=== PATIENT | male | born 1940 | race Caucasian/White ===

== ENCOUNTER → 2024-06-26 | Outpatient (CLI) | payer MEDICARE, MEDICAID, SELFPAY ==
[2024-06-26 11:09] LABS: Collection Type, Urine Clean Catch; Squamous Epithelial Cell,Urine 0 /hpf (0-5)
[2024-06-26 11:32] LABS: Basophils % (Auto) 1 % (0-2.5); Eosinophils # (Auto) 0.1 Thou/mm3 (0.0-0.5); Eosinophils % (Auto) 3 % (0-10); Hematocrit 47.5 % (41.0-53.0); Hemoglobin 14.8 g/dL (13.5-16.0); Immature Granulocytes % (Auto) 0 % (0-0); Immature Granulocytes Auto 0.02 Thou/mm3 (0.00-0.00); Lymphocytes % (Auto) 36 % (10-50); Mean Corpuscular HGB Conc 31.2 g/dl (31.0-37.0); Mean Corpuscular Hemoglobin 27.3 pg (25.0-35.0); Mean Corpuscular Volume 88 fL (80-100); Monocytes # (Auto) 0.5 Thou/mm3 (0.0-0.8); Monocytes % (Auto) 9 % (0-12); Neutrophils # (Auto) 2.8 Thou/mm3 (1.8-7.7); Neutrophils % (Auto) 51 % (37-80); Nucleated Red Blood Cell % 0 /100 WBC (0); Platelet Count 255 Thou/mm3 (140-440); Red Blood Count 5.43 Miln/mm3 (4.50-5.90); White Blood Count 5.4 Thou/mm3 (3.8-10.6)
[2024-06-26 11:52] LABS: Bilirubin,Urine Negative (Negative); Blood,Urine Negative (Negative); Clarity,Urine Clear (Clear/Hazy); Color,Urine Yellow (Lt Yel-Yel); Glucose, Urine 4+ (Negative); Ketones,Urine Negative (Negative); Leukocyte Esterase,Urine Negative (Negative); Nitrite,Urine Negative (Negative); PH,Urine 5.5 (5.0-7.0); Protein,Urine Trace (Neg - Trace); RBC,Urine 4 /hpf (0-3); Specific Gravity,Urine 1.034 (1.001-1.035); Urobilinogen,Urine Negative mg/dL (0.0-1.0); WBC,Urine 2 /hpf (0-5)
[2024-06-26 12:00] LABS: Alanine Aminotransferase 22 U/L (10-49); Albumin, Serum 4.1 gm/dL (3.4-4.8); Albumin/Globulin Ratio 1.4 (1.2-2.2); Alkaline Phosphatase 87 U/L (46-116); Anion Gap 7 (7-16); Aspartate Amino Transferase 18 U/L (0-34); BUN/Creatinine Ratio 13 Ratio (12-20); Bilirubin,Total 0.7 mg/dL (0.3-1.2); Blood Urea Nitrogen 13 mg/dL (9-23); Calcium 9.9 mg/dL (8.3-10.6); Calcium (Corrected) 9.9 mg/dL (8.5-10.1); Carbon Dioxide 27.9 mMol/L (20.0-31.0); Cardiac Risk Estimate 2.5 RATIO (4.0-6.7); Chloride 106 mMol/L (98-107); Cholesterol 119 mg/dL (132-200); Globulin 2.9 gm/dL (2.3-3.5); Glucose 103 mg/dL (74-106); HDL Cholesterol 47 mg/dL (40-60); LDL Cholesterol,Calculated 54 mg/dL (0-130); Osmolality,Calculated 281 (275-295); Potassium 4.6 mMol/L (3.4-5.1); Sodium 141 mMol/L (136-145); Triglycerides 89 mg/dL (30-150); eGFR > 60 See Note
== END | disposition home or self-care (01) ==
LOC: COPL 10:04
PROVIDERS: PCP Family Medicine; Referring Provider Family Medicine; Visit Provider Family Medicine
DX: Z00.00 Encounter for general adult medical examination without abnormal findings (principal); E78.2 Mixed hyperlipidemia; I10 Essential (primary) hypertension; I25.10 Atherosclerotic heart disease of native coronary artery without angina pectoris
CPT/HCPCS: 36415; 80053; 80061; 81001; 85025

== ENCOUNTER → 2024-10-18 | Outpatient (CLI) | payer MEDICARE, MEDICAID, SELFPAY ==
[2024-10-18 10:39] LABS: Alanine Aminotransferase 16 U/L (10-49); Albumin, Serum 3.7 gm/dL (3.4-4.8); Albumin/Globulin Ratio 1.2 (1.2-2.2); Alkaline Phosphatase 66 U/L (46-116); Anion Gap 11 (7-16); Aspartate Amino Transferase 23 U/L (0-34); BUN/Creatinine Ratio 15 Ratio (12-20); Bilirubin,Total 0.9 mg/dL (0.3-1.2); Blood Urea Nitrogen 15 mg/dL (9-23); Calcium 9.3 mg/dL (8.3-10.6); Calcium (Corrected) 9.5 mg/dL (8.5-10.1); Carbon Dioxide 29.2 mMol/L (20.0-31.0); Cardiac Risk Estimate 2.6 RATIO (4.0-6.7); Chloride 104 mMol/L (98-107); Cholesterol 111 mg/dL (132-200); Glucose 106 mg/dL (74-106); HDL Cholesterol 43 mg/dL (40-60); LDL Cholesterol,Calculated 41 mg/dL (0-130); Osmolality,Calculated 287 (275-295); Potassium 3.8 mMol/L (3.4-5.1); Sodium 144 mMol/L (136-145); Total Protein 6.7 gm/dL (5.7-8.2); Triglycerides 135 mg/dL (30-150); eGFR > 60 See Note
== END | disposition home or self-care (01) ==
LOC: COPL 09:10
PROVIDERS: PCP Family Medicine; Referring Provider Family Medicine; Visit Provider Family Medicine
DX: E78.2 Mixed hyperlipidemia (principal); I25.10 Atherosclerotic heart disease of native coronary artery without angina pectoris; I11.0 Hypertensive heart disease with heart failure; I50.22 Chronic systolic (congestive) heart failure
CPT/HCPCS: 36415; 80053; 80061

== ENCOUNTER 2025-01-20 16:37 | Emergency (ER) | payer MEDICARE, MEDICAID, SELFPAY ==
--- NOTE | 2025-01-20 16:41 | EKG_ITS ---
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1940 Requested By: ED Temporary Provider Order Number: [id number] Reading MD: ED Temporary Provider Measurements Intervals [place] Rate: 78 P: 33 OR: 275 QRS: 261 QRSD: 138 T: 46 QT: 399 QTc: 456 Interpretive Statements SINUS RHYTHM WITH FIRST DEGREE AV BLOCK WITH OCCASIONAL SUPRAVENTRICULAR PREMATURE COMPLEXES INTRAVENTRICULAR CONDUCTION DELAY [130+ ms QRS DURATION] RIGHT VENTRICULAR HYPERTROPHY [SOME/ALL OF: PROMINENT R IN V1, LATE TRANSITION, RAD, PHILIPP, SSS] INFERIOR MYOCARDIAL INFARCTION , PROBABLY OLD [40+ ms Q WAVE AND/OR ST/T ABNORMALITY IN II/aVF] ANTEROLATERAL MYOCARDIAL INFARCTION , OF INDETERMINATE AGE [40+ ms Q WAVE IN I/aVL/V3-V6] Compared to ECG 01/20/2025 17:00:13 Right ventricular hypertrophy now present Myocardial infarct finding now present Ectopic atrial rhythm no longer present Right-axis deviation no longer present /store/S0/[id number].pdf
--- NOTE | 2025-01-20 16:41 | EKG_ITS ---
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1940 Requested By: ED Temporary Provider Order Number: [id number] Reading MD: ED Temporary Provider Measurements Intervals [place] Rate: 80 P: -81 FL: 225 QRS: 253 QRSD: 158 T: 47 QT: 385 QTc: 446 Interpretive Statements ECTOPIC ATRIAL RHYTHM WITH FIRST DEGREE AV BLOCK POSSIBLE LEFT ATRIAL ENLARGEMENT [-0.1mV P-WAVE IN V1/V2] RIGHT AXIS DEVIATION [QRS AXIS > 100] INTRAVENTRICULAR CONDUCTION DELAY [130+ ms QRS DURATION] Compared to ECG 12/07/2023 13:15:49 Ectopic atrial rhythm now present Right-axis deviation now present Sinus rhythm no longer present Sinus arrhythmia no longer present Myocardial infarct finding no longer present /store/S0/[id number].pdf
[2025-01-20 16:56] VITALS: BP 125/82; PULSE 81; RESP 19; TEMP 36.7; O2SAT 95
--- NOTE | 2025-01-20 17:03 | XR_ITS ---
Examination: PA lateral chest 2 views FINDINGS: Upright PA and lateral chest 2 views Date and time: January 20, 2025, 1729 hours Comparison January 20, 2025 1314 hours INDICATIONS: Chest pain and weakness today. FINDINGS: Scarring versus subsegmental atelectasis at the lung bases Minor prominence left ventricle Ectatic thoracic aorta. No interval pneumonia or pulmonary edema Prominent osteopenia IMPRESSION: No interval pneumonia or pulmonary edema
--- NOTE | 2025-01-20 17:03 | PD.EDRME ---
Rapid Medical Screening Exam RME Arrival date/time: 01/20/25 16:37 84-year-old male with a history of hyperlipidemia, hypertension, coronary artery disease, presents to the emergency room with a chief complaint of 7 out of 10 sternal chest pain that radiates to his left arm x 3 days I have greeted and performed a focused initial assessment of this patient. A comprehensive ED assessment and evaluation of the patient, analysis of all test results, and completion of the medical decision making process will be conducted by additional ED providers. Chief Complaint: Chest Pain Vital signs: Vital Signs Temperature 98.0 F 01/20/25 16:56 Pulse Rate 81 01/20/25 16:56 Respiratory Rate 19 01/20/25 16:56 Blood Pressure 125/82 01/20/25 16:56 Pulse Oximetry (%) 95 01/20/25 16:56 Oxygen Delivery Method Room Air 01/20/25 16:56 Vital signs reviewed by provider: Yes
[2025-01-20 17:20] LABS: Basophils # (Auto) 0.0 Thou/mm3 (0.0-0.2); Basophils % (Auto) 0 % (0-2.5); Eosinophils # (Auto) 0.3 Thou/mm3 (0.0-0.5); Eosinophils % (Auto) 4 % (0-10); Hematocrit 48.6 % (41.0-53.0); Hemoglobin 15.5 g/dL (13.5-16.0); Immature Granulocytes Auto 0.01 Thou/mm3 (0.00-0.00); Lymphocytes # (Auto) 2.7 Thou/mm3 (1.0-4.8); Lymphocytes % (Auto) 38 % (10-50); Mean Corpuscular HGB Conc 31.9 g/dl (31.0-37.0); Mean Corpuscular Hemoglobin 29.3 pg (25.0-35.0); Mean Corpuscular Volume 92 fL (80-100); Monocytes # (Auto) 0.9 Thou/mm3 (0.0-0.8); Monocytes % (Auto) 12 % (0-12); Neutrophils # (Auto) 3.3 Thou/mm3 (1.8-7.7); Neutrophils % (Auto) 46 % (37-80); Nucleated Red Blood Cell # 0.00 Thou/mm3 (0.00-0.00); Nucleated Red Blood Cell % 0 /100 WBC (0); Platelet Count 222 Thou/mm3 (140-440); RDW Standard Deviation 56.3 fL (35.1-43.9); Red Blood Count 5.29 Miln/mm3 (4.50-5.90); White Blood Count 7.2 Thou/mm3 (3.8-10.6)
[2025-01-20 17:38] LABS: B-Type Natriuretic Peptide 34 pg/mL (0-100); INR 1.1 (0.9-1.3); Partial Thromboplastin Time 26.0 Seconds (22.0-36.0); Prothrombin Time 11.8 Seconds (9.0-12.2)
[2025-01-20 17:43] LABS: Alanine Aminotransferase 24 U/L (10-49); Albumin, Serum 4.2 gm/dL (3.4-4.8); Albumin/Globulin Ratio 1.4 (1.2-2.2); Alkaline Phosphatase 61 U/L (46-116); Anion Gap 9 (7-16); Aspartate Amino Transferase 28 U/L (0-34); BUN/Creatinine Ratio 11 Ratio (12-20); Bilirubin,Total 0.5 mg/dL (0.3-1.2); Blood Urea Nitrogen 11 mg/dL (9-23); Calcium 9.9 mg/dL (8.3-10.6); Calcium (Corrected) 9.9 mg/dL (8.5-10.1); Carbon Dioxide 27.6 mMol/L (20.0-31.0); Chloride 103 mMol/L (98-107); Creatinine (Component) 1.0 mg/dL (0.6-1.3); Globulin 2.9 gm/dL (2.3-3.5); Glucose 133 mg/dL (74-106); Magnesium 1.7 mg/dL (1.6-2.6); Osmolality,Calculated 280 (275-295); Potassium 4.2 mMol/L (3.4-5.1); Sodium 140 mMol/L (136-145); Total Protein 7.1 gm/dL (5.7-8.2); eGFR > 60 See Note
[2025-01-20 18:10] LABS: Troponin I 0.160 ng/mL (0.0-0.045)
--- NOTE | 2025-01-20 18:15 | PC.NURSE ---
CALL FROM ANDREW IN LAB W/ PT'S TROP. 0.160. DR. ALVAREZ INFORMED, REQUESTED A ROOM FOR PT. CHARGE NURSE RAKESH INFORMED.
[2025-01-20 18:16] LABS: Collection Type, Urine Clean Catch; Squamous Epithelial Cell,Urine 0 /hpf (0-5)
[2025-01-20 18:22] VITALS: BP 132/86; PULSE 85; RESP 19; TEMP 36.6; O2SAT 97; BMI 30.1
[2025-01-20 18:25] LABS: Bilirubin,Urine Negative (Negative); Blood,Urine Negative (Negative); Clarity,Urine Clear (Clear/Hazy); Color,Urine Lt-Yellow (Lt Yel-Yel); Glucose, Urine 4+ (Negative); Ketones,Urine Negative (Negative); Leukocyte Esterase,Urine Negative (Negative); Nitrite,Urine Negative (Negative); PH,Urine 5.5 (5.0-7.0); Protein,Urine Negative (Neg - Trace); RBC,Urine 1 /hpf (0-3); Specific Gravity,Urine 1.032 (1.001-1.035); Urobilinogen,Urine Negative mg/dL (0.0-1.0); WBC,Urine 2 /hpf (0-5)
--- NOTE | 2025-01-20 19:04 | PD.EDADULT ---
ED General RME/HPI General Chief complaint: Chest Pain Stated complaint: CHEST PAIN SINCE THIS MORNING , SENT BY PCP Time Seen by Provider: 01/20/25 18:12 Arrival date/time: 01/20/25 16:37 CC: Chest pain with shortness of breath HPI onset approximately 48 hours ago. Patient states pain is somewhat dissipated also patient stating that he has increased shortness of breath which she has not experienced in the past. Patient is awake alert oriented he is slow to respond to questions secondary to an old CVA at bedside Review of the medical record shows significant history for multiple stents aortic aneurysm repair and stroke. RME / HPI RME / HPI narrative: 01/20/25 16:37 84-year-old male with a history of hyperlipidemia, hypertension, coronary artery disease, presents to the emergency room with a chief complaint of 7 out of 10 sternal chest pain that radiates to his left arm x 3 days I have greeted and performed a focused initial assessment of this patient. A comprehensive ED assessment and evaluation of the patient, analysis of all test results, and completion of the medical decision making process will be conducted by additional ED providers. Related Data Home Medications ?Medication ?Instructions ?Recorded ?Confirmed aspirin 81 mg tablet,delayed 81 mg PO DAILY 09/17/21 12/08/23 release duloxetine 30 mg capsule,delayed 30 mg PO BID 12/02/23 12/08/23 release (Cymbalta) gabapentin 300 mg capsule 300 mg PO QID 12/02/23 12/08/23 galcanezumab-gnlm 120 mg/mL 120 mg subcut QMONTH 12/02/23 12/08/23 subcutaneous pen injector (Emgality Pen) losartan 100 mg tablet 100 mg PO QDAY 12/02/23 12/08/23 Held on 12/09/23. Instructions: Resume on 12/23/23. Has been held and placed on 50mg daily dose, will follow up with PCP and digital marketing specialist to make any dose adjustment within 2 weeks. Previous Rx's ?Medication ?Instructions ?Recorded tramadol 50 mg tablet 50 mg PO TID PRN pain #21 tabs 12/05/20 atorvastatin 80 mg tablet 80 mg PO HS 30 days #30 tabs 12/09/23 empagliflozin 10 mg tablet 10 mg PO QAM 30 days #30 tabs 12/09/23 (Jardiance) Allergies Allergy/AdvReac Type Severity Reaction Status Date / Time No Known Allergies Allergy Verified 01/20/25 16:40 Review of Systems Review of Systems Narrative Review of Systems: GEN: No fever, no chills, no weight loss EYES: No discharge, no visual changes, no pain HEENT: No ear pain, no congestion, no sore throat PULM: + shortness of breath, no cough, no congestion CV: + chest pain, no dyspnea on exertion, no palpitations GI: No nausea, no vomiting, no diarrhea, no pain, no constipation : No frequency, no urgency, no dysuria MUSC/SKEL: No joint pain, no back pain SKIN: No rash PSYCH: No hallucinations, no depression HEME/LYMPH: No easy bleeding or bruising tendencies NEURO: No weakness, no headache Past Medical History Past Medical History NEUROLOGIC: Positive Neurological Disorders and Migraine; Negative Seizures CARDIAC: Positive Cardiac Disorders, Atrial Fibrillation, Angina, Atherosclerotic Heart Disease, Peripheral Vascular Disease and Hypertension; Negative Congestive Heart Failure RESPIRATORY: Positive Bronchitis; Negative Chronic Obstructive Pulmonary Disease (COPD) or Asthma GASTROINTESTINAL: Negative Gastrointestinal Disorders GENITOURINARY: Positive Genitourinary Disorders, Kidney Stones and Benign Prostatic Hyperplasia; Negative Renal Disease MUSCULOSKELETAL: Positive Musculoskeletal Disorders and Osteoporosis ENT: Positive Cataracts ENDOCRINE: Negative Endocrine Disorders, Diabetes Mellitus Type 1 or Diabetes Mellitus Type 2 HEMATOLOGIC: Negative Blood Disorders or Sickle Cell Disease PSYCHO/SOCIAL: Positive Depression and Anxiety OTHER HISTORY: Positive Hospitalization; Negative Autoimmune Disease, Falls, Blood Transfusions, Blood Transfusion Reaction or Anesthesia Reactions Family History FAMILY HISTORY: Positive Family Psychiatric Problems and Family Cardiac Disorders; Negative Family Respiratory Disorders Surgical History SURGICAL: Positive Cardiac Surgery, Coronary Stent, Angiogram, Ear Surgery, Tympanostomy Tube, Eye Surgery, Throat Surgery and Vasectomy Social History SMOKING STATUS: Former smoker SECOND HAND EXPOSURE: No SUBSTANCE USE: does not use ED Exam Narrative Physical exam: [General: Appears not in any acute distress Head normocephalic HEENT: Eyes pupils are PERRLA EOMs are intact mouth pink dry membranes uvula is midline swallow symmetrical phonation is normal nose no rhinorrhea although the subsystems HEENT are within acceptable limits Neck is supple nontender, no JVD no edema Chest equal chest rise nontender to palpation Respiratory: Clear to auscultation no wheezes crackles or rubs CV: Rate rhythm is regular no murmurs rubs or clicks Abdomen is soft nontender no masses positive bowel sounds all 4 quadrants Back: No CVA tenderness no spinous process tenderness from cervical spine thoracic and lumbar spine Skin: Intact no petechiae rash induration ulceration or crepitus Extremities: Moving all extremity against resistance cap refill less than 2 seconds neurosensory intact Neuro: Awake alert oriented x2, person and place, Glascow coma 15 no focal deficits] Course Course Course Narrative: At 2140 2 repeat troponin is unchanged as there has not been a huge increase in the troponin of the low index of suspicion that there is new cardiac ischemia going on as this is less than the prior lab draws. Patient tolerated ambulating without hypotension, hypoxia, or shortness of breath. Patient will be given small amount of medication for the hypertension and discharged home. Quality Measures none Orders Category Date Time Status EKG (ED ONLY) *Do not use* NOW Care 01/20/25 16:41 Completed Insert IV NOW Care 01/20/25 20:15 Completed EKG (ED Only) Stat Exams 01/20/25 16:41 Draft EKG (ED Only) Urgent Exams 01/20/25 16:41 Draft XR chest 2V Stat Exams 01/20/25 17:03 Completed B-Type Natriuretic Peptide Stat Lab 01/20/25 17:15 Completed CBC Stat Lab 01/20/25 17:15 Completed Comprehensive Metabolic Panel Stat Lab 01/20/25 17:15 Completed Magnesium Stat Lab 01/20/25 17:15 Completed Partial Thromboplastin Time Stat Lab 01/20/25 17:15 Completed Prothrombin Time with INR Stat Lab 01/20/25 17:15 Completed Troponin I Stat Lab 01/20/25 17:15 Completed Troponin I Stat Lab 01/20/25 20:08 Completed Urinalysis Stat Lab 01/20/25 17:30 Completed hydrALAZINE INJ [Apresoline Inj] Med 01/20/25 21:41 Discontinued 10 mg IVP X1 ONE Vital Signs Vital signs: Vital Signs Temperature 98.0 F 01/20/25 16:56 Pulse Rate 81 01/20/25 16:56 Respiratory Rate 19 01/20/25 16:56 Blood Pressure 125/82 01/20/25 16:56 Pulse Oximetry (%) 95 01/20/25 16:56 Oxygen Delivery Method Room Air 01/20/25 16:56 Discharge Plan Plan Patient Disposition: HOME (Self Care) Patient condition on transfer: Stable Prescriptions/Referrals Prescriptions/Med Rec: No Action tramadol 50 mg tablet 50 mg PO TID PRN (Reason: pain) Qty: 21 0RF aspirin 81 mg tablet,delayed release (DR/EC) 81 mg PO DAILY Patient Comments: TAKE ONE TABLET BY MOUTH EVERY DAY FOR THE HEART atorvastatin 80 mg tablet 80 mg PO HS 30 Days Qty: 30 2RF Jardiance 10 mg Tablet 10 mg PO QAM 30 Days Qty: 30 0RF gabapentin 300 mg capsule 300 mg PO QID losartan 100 mg tablet 100 mg PO QDAY duloxetine [Cymbalta] 30 mg capsule,delayed release(DR/EC) 30 mg PO BID Patient Comments: TAKE 1 CAPSULE BY MOUTH ONCE A DAY FOR 1 WEEK THEN 2 TIMES A DAY WITH FOOD Emgality Pen 120 mg/mL pen injector 120 mg SUBCUT QMONTH Referrals: Faina Cardenas MD [Primary Care Provider] - In 1 week Problem List Clinical Impression: Chest pain Patient/Caregiver Discharge Instructions Other Activity Instructions:: Follow-up with your primary care provider Education Materials: ED Chest Pain, Uncertain Cause Print Language: Upper Sorbian Stand Alone Forms: [employer] Award Info., Work/School Release, Patient Portal Info Letter PA/GENERAL UTILITY WORKER Supervising Physician PA/GENERAL UTILITY WORKER Supervising Physician: Molina Guerra ENP MDM Clinical Information Provided by patient Medical Records Reviewed [facility] Meds/Rx Considered, not Ordered None Labs/Rad/Tests considered, not Ordered None Chronic Illness/Social Conditions which may negatively complicate care or outcome(s)-explain: CHF/CAD/Cardiac illness EKG EKG Interpretation narrative: EKG performed at 1700 shows a ventricular rate of 9080 MI interval 225 QRS of 158 QTc of 421 this is ectopic atrial rhythm with first-degree block. When compared to an EKG of November 2023 there are no significant changes. Lab Interpretation Lab(s) interpretation(s): CBC shows no acute leukocytosis anemia thrombocytopenia Coags within acceptable limits CMP shows no significant electrolyte imbalance renal impairment transaminitis or T. bili elevation Troponin at 0.160 note: The patient has had all elevated troponins with visits in the past secondary to a significant cardiac history. BNP is within acceptable limits Urine shows 4+ glucose no other acute finding suggestive of UTI. Imaging Provider imaging interpretation(s): Chest x-ray as interpreted by me read by radiology is negative for any acute finding. Medication Administration(s) Medication Administration History Discontinued Medications Hydralazine HCl (Hydralazine Inj 20 Mg/Ml Vial) 10 mg IVP X1 ONE Stop: 01/20/25 21:42 Last Admin: 01/20/25 21:45 Dose: 10 mg Documented By: MATILDA
[2025-01-20 19:59] VITALS: BP 179/109; PULSE 71; RESP 18; TEMP 36.5; O2SAT 95
--- NOTE | 2025-01-20 20:31 | PC.NURSE ---
PT IS TAKING MONEY HOME
[2025-01-20 21:16] LABS: Troponin I 0.162 ng/mL (0.0-0.045)
--- NOTE | 2025-01-20 21:37 | PC.NURSE ---
PT AMBULATED TO NURSING STATION AND BACK WITHOUT REPORTING ANY ISSUES. PT DENIES SOB AND DIZZINESS. PTS GAIT IS STEADY.
[2025-01-20 21:40] VITALS: BP 202/103; PULSE 65; RESP 18; TEMP 37.1; O2SAT 97
[2025-01-20 21:45] VITALS: BP 202/103; PULSE 67
[2025-01-20] MEDS: hydrALAZINE INJ 20 MG/ML VIAL 10 MG IVP (21:45)
[2025-01-20 22:16] VITALS: BP 175/90; PULSE 69; RESP 13; O2SAT 95
== END 2025-01-20 22:17 | disposition home or self-care (01) ==
PROVIDERS: Nurse Practitioner Family; Registered Nurse General Practice; Emergency Provider Emergency Medicine; PCP Family Medicine
DX: R07.9 Chest pain, unspecified (principal); R53.1 Weakness; I44.0 Atrioventricular block, first degree; I10 Essential (primary) hypertension; R06.02 Shortness of breath; Z87.891 Personal history of nicotine dependence
CPT/HCPCS: 36415; 71046; 80053; 81001; 83735; 83880; 84484; 85025; 85610; 85730; 93005; 96374; 99283; J0360

== ENCOUNTER → 2025-01-20 | Outpatient (CLI) | payer MEDICARE, MEDICAID, SELFPAY ==
--- NOTE | 2025-01-20 12:39 | XR_ITS ---
Examination: AP chest single view Technique one AP upright portable chest single view Date and time: January 20, 2025, 1314 hours INDICATIONS: Chest pain coughing beginning one week ago FINDINGS: Subsegmental atelectasis in the lower lung zones. Normal heart size. No pneumonia or pulmonary edema. Mild to moderate elevation right hemidiaphragm IMPRESSION: No pneumonia or pulmonary edema.
[2025-01-20 14:41] LABS: Basophils # (Auto) 0.0 Thou/mm3 (0.0-0.2); Basophils % (Auto) 1 % (0-2.5); Eosinophils # (Auto) 0.2 Thou/mm3 (0.0-0.5); Eosinophils % (Auto) 3 % (0-10); Hematocrit 47.9 % (41.0-53.0); Hemoglobin 15.4 g/dL (13.5-16.0); Immature Granulocytes Auto 0.01 Thou/mm3 (0.00-0.00); Lymphocytes # (Auto) 2.5 Thou/mm3 (1.0-4.8); Lymphocytes % (Auto) 38 % (10-50); Mean Corpuscular HGB Conc 32.2 g/dl (31.0-37.0); Mean Corpuscular Hemoglobin 29.6 pg (25.0-35.0); Mean Corpuscular Volume 92 fL (80-100); Monocytes # (Auto) 0.7 Thou/mm3 (0.0-0.8); Monocytes % (Auto) 11 % (0-12); Neutrophils # (Auto) 3.2 Thou/mm3 (1.8-7.7); Neutrophils % (Auto) 48 % (37-80); Nucleated Red Blood Cell # 0.00 Thou/mm3 (0.00-0.00); Nucleated Red Blood Cell % 0 /100 WBC (0); Platelet Count 219 Thou/mm3 (140-440); RDW Standard Deviation 56.5 fL (35.1-43.9); Red Blood Count 5.20 Miln/mm3 (4.50-5.90); White Blood Count 6.6 Thou/mm3 (3.8-10.6)
[2025-01-20 15:00] LABS: Alanine Aminotransferase 25 U/L (10-49); Albumin, Serum 4.1 gm/dL (3.4-4.8); Albumin/Globulin Ratio 1.4 (1.2-2.2); Alkaline Phosphatase 60 U/L (46-116); Anion Gap 11 (7-16); Aspartate Amino Transferase 29 U/L (0-34); BUN/Creatinine Ratio 12 Ratio (12-20); Bilirubin,Total 0.6 mg/dL (0.3-1.2); Blood Urea Nitrogen 12 mg/dL (9-23); Calcium 9.7 mg/dL (8.3-10.6); Calcium (Corrected) 9.7 mg/dL (8.5-10.1); Carbon Dioxide 26.3 mMol/L (20.0-31.0); Chloride 102 mMol/L (98-107); Creatinine (Component) 1.0 mg/dL (0.6-1.3); Globulin 2.9 gm/dL (2.3-3.5); Glucose 94 mg/dL (74-106); Osmolality,Calculated 277 (275-295); Potassium 3.9 mMol/L (3.4-5.1); Sodium 139 mMol/L (136-145); Total Protein 7.0 gm/dL (5.7-8.2); eGFR > 60 See Note
[2025-01-20 15:02] LABS: Troponin I 0.147 ng/mL (0.0-0.045)
== END | disposition home or self-care (01) ==
LOC: CDIM 12:19 → COPL 13:21
PROVIDERS: PCP Family Medicine; Referring Provider Family Medicine; Visit Provider Radiology Diagnostic Radiology
DX: R06.02 Shortness of breath (principal); R07.9 Chest pain, unspecified; I25.10 Atherosclerotic heart disease of native coronary artery without angina pectoris
CPT/HCPCS: 36415; 71045; 80053; 84484; 85025

== ENCOUNTER 2025-05-30 06:21 | Inpatient (IN) | payer MEDICARE, MEDICAID, SELFPAY ==
[2025-05-30] VITALS (10 sets, daily range): BP systolic 126–198; BP diastolic 90–116; PULSE 60–79; RESP 16–99; TEMP 36.2–36.7; O2SAT 92–98; BMI 26.4
--- NOTE | 2025-05-30 06:25 | XR_ITS ---
Examination: CT brain head without contrast. 2-D sagittal coronal reconstructions Date and time of exam: May 30, 2025, 0631 hours INDICATIONS: Stroke alert CTDI: vol (mGy): 56.0 DLP: (mGycm): 1274 Technique: Multiple CT axial sections of the brain have been obtained, 5 mm slice thickness. Contrast has not been administered. 2-D sagittal, coronal reconstructions have been obtained Low dose protocols were performed. One or more of the following dose reduction techniques were used; automated exposure control, adjustment of the mA and/or KV according to patient size, use of iterative reconstruction technique. Findings: No significant ventricular enlargement. Small old infarct left cerebellar hemisphere left basal ganglia left caudate nucleus Intra-axial or extra-axial hemorrhage density is not seen. No mass effect or midline shift Basal cisterns are not remarkable. Fourth ventricle is midline. Cranial vault intact. Impression: Negative for acute hemorrhage, mass effect or midline shift
--- NOTE | 2025-05-30 06:25 | XR_ITS ---
Examination: CTA carotids with intravenous contrast CTA brain, head with intravenous contrast. 2-D sagittal, coronal reconstructions. 3-D reconstructions. Exam date and time: May 30, 2025, 0630 hours INDICATIONS: Stroke alert, generalized weakness unable to talk or walk beginning 1 hour ago CTDI: vol (mGy) 27.51 DLP: (mGycm) 589 Technique: Multiple CTA axial brain, head carotid images post intravenous contrast injection 75 cc, [id number]. 2-D sagittal, coronal reconstructions. 3-D reconstructions, 3-D post processing including vascular maximum intensity projection images. Low dose protocols were performed. One or more of the following dose reduction techniques were used; automated exposure control, adjustment of the mA and/or KV according to patient size, use of iterative reconstruction technique. Findings: No significant common carotid carotid bifurcation or internal carotid artery stenoses Dominant left vertebral artery, no critical vertebral artery stenoses in the neck Intracranial vertebral arteries basilar artery and posterior cerebral artery branches do fill Significant stenosis in the P3 segment left posterior cerebral artery, 80 to 90% Petrous juxtasellar portions internal carotid arteries intact No large vessel occlusions involving M1 segments middle cerebral arteries middle cerebral artery trifurcation vessels or anterior cerebral arteries IMPRESSION: No significant neck arterial stenoses No cerebral large vessel arterial occlusions or thrombus
--- NOTE | 2025-05-30 06:34 | PD.TNEURO ---
Tele Neuro Consultation Consultation Date 05/30/25 Consultation Narrative Tele Stroke Consult Note [facility] TeleNeurology Consult Services Patient Name:???Christopher Fisher Date of :???1940 Identification Number:??? Date of Service:???05/30/2025 06:24:21 Diagnosis:?I63.89 - Cerebrovascular accident (CVA) due to other mechanism (HCCC) ?G93.41 - Encephalopathy Metabolic ?R47.1 - Dysarthria and anarthria Impression: ?speech apraxia vs anarthria; possible acute ischemic stroke vs acute toxic or metabolic or infectious encephalopathy ? ?load with aspirin 300 mg NJ x1 as patient cannot swallow safely ?will need to clarify home medications (and clarify if there have been any new medications or dosing changes) ?limit sedating medications ?allow permissive hypertension up to 220/110 for first 24 hours then slowly and gradually goal normotension thereafter ?cardiac workup as well as nvflh-rrtiiiubn-pafkysuipq workup (including EKG, troponins, B12 level, TSH with free T4, U/A and UCx) ?admit for further workup and management ?MRI brain when able ?continue to monitor on telemetry ?echocardiogram ?labs for risk factor stratification (lipid panel and HbA1c) ?PT/OT/speech ? ?Plan discussed with patient and ED team, including ED provider, who are all in agreement with plan. All questions were answered to the best of my ability. Sign Out: ? Discussed with Emergency Department Provider Advanced Imaging:CTA Head and Neck Completed. LVO:No Patient is not a candidate for GIOVANNA Metrics: Last Known Well: 05/29/2025 20:00:00 Arrival Time: 05/30/2025 06:21:00 Activation Time: 05/30/2025 06:24:21 Initial Response Time: 05/30/2025 06:25:59Symptoms: chest pain and inability to produce speech. Initial patient interaction: 05/30/2025 06:26:51 NIHSS Assessment Completed: 05/30/2025 06:42:34Patient is not a candidate for Thrombolytic. Thrombolytic Medical Decision: 05/30/2025 06:42:36Patient was not deemed candidate for Thrombolytic because of following reasons: LKW outside 4.[address] Head: I personally reviewed all the CT images that were available to me and it showed: Imaging was personally reviewed. CTH shows an age indeterminate hypodensity in the right thalamus as well as chronic appearing hypodensities in the left thalamocapsular region and the left cerebellum as well as diffuse atrophy and small vessel ischemic disease but is negative for bleed. CTA head/neck shows scattered atherosclerotic plaques but vessels are patent without high grade stenosis or large vessel occlusion. There is a posterior cerebral artery on the right, which is a normal variant. Evidence of prior cervical spine surgery. Primary Provider Notified of Diagnostic Impression and Management Plan on: 05/30/2025 06:45:15 History of Present Illness:Patient is a 85 year old Male. Patient was brought by EMS for symptoms of chest pain and inability to produce speech. 85 yo man with a history of prior strokes (including left thalamic infarct in 11/2021) with some cognitive changes, hypertension, hyperlipidemia, coronary artery disease s/p percutaneous coronary intervention with coronary angioplasty and stenting, who presents to the ED via EMS with chest pain and inability to produce speech. LKW on 05/29/25 at 2000 when he went to bed last night. He woke up this morning with chest pain so attempted to given his 324 mg of aspirin and nitroglycerine. EMS was dispatched at 0550 am. On arrival, he was not speaking and was unable to produce speech. He attempts to mouth words and is able to nod in response to simple questions. He is able to use his hands to gesture/answer orientation questions. EMS BP 180s-190s systolic with heart rates in the 60s-70s. POC glucose 209. No ischemic changes noted on EKG per EMS prior to arrival. On arrival to the ED, he was noted to have remnants of aspirin in his mouth. ? Past Medical History: ?Hypertension ?Hyperlipidemia ?Coronary Artery Disease ?Stroke ?There is no history of Diabetes Mellitus Medications: No Anticoagulant use? Antiplatelet use:?Yes?aspirin 81 mg daily Reviewed EMR for current medications Allergies:? Reviewed Social History: Smoking: Former Family History: There is no family history of premature cerebrovascular disease pertinent to this consultation ROS : 14 Points Review of Systems was performed and was negative except mentioned in HPI. Past Surgical History: There Is No Surgical History Contributory To Today?s Visit There Is Surgical History of:? cardiac stents ?cervical spine surgery ? Examination: BP(180/105),?Pulse(64),?Blood Glucose(209) 1A: Level of Consciousness - Alert; keenly responsive?+ 0 1B: Ask Month and Age - Both Questions Right?+ 0 1C: Blink Eyes & Squeeze Hands - Performs Both Tasks?+ 0 2: Test Horizontal Extraocular Movements - Normal?+ 0 3: Test Visual [place] - No Visual Loss?+ 0 4: Test Facial Palsy (Use Grimace if Obtunded) - Normal symmetry?+ 0 5A: Test Left Arm Motor Drift - No Drift for 10 Seconds?+ 0 5B: Test Right Arm Motor Drift - Drift, but doesn't hit bed?+ 1 6A: Test Left Leg Motor Drift - No Drift for 5 Seconds?+ 0 6B: Test Right Leg Motor Drift - Some Effort Against [place]?+ 2 7: Test Limb Ataxia (FNF/Heel-Suh) - No Ataxia?+ 0 8: Test Sensation - Normal; No sensory loss?+ 0 9: Test Language/Aphasia - Severe Aphasia: Fragmentary Expression, Inference Needed, Cannot Identify Materials?+ 2 10: Test Dysarthria - Mute/Anarthric?+ 2 11: Test Extinction/Inattention - No abnormality?+ 0 NIHSS Score:?7 NIHSS Free Text :?Patient is encephalopathic appearing. mute. attempts to mouth words but with no audible sound produced. Oriented to age and month using his hands to indicate responses. Able to follow commands. Unable to read. Face is symmetric at rest and on activation. Eyes conjugate on primary gaze. Full EOM in the horizontal plane in both directions. No visual field cut to finger wiggle. Sensation intact to light touch in face and extremities bilaterally. Antigravity in the left >right upper extremity. Antigravity in the left>right lower extremities. Pre-Morbid Modified [place] Scale: 2 Points = Slight disability; unable to carry out all previous activities, but able to look after own affairs without assistance Spoke with :?Dr. Gomez This consult was conducted in real time using interactive audio and video technology. Patient was informed of the technology being used for this visit and agreed to proceed. Patient located in hospital and provider located at home/office setting. Patient is being evaluated for possible acute neurologic impairment and high probability of imminent or life-threatening deterioration. I spent total of 46 minutes providing care to this patient, including time for face to face visit via telemedicine, review of medical records, imaging studies and discussion of findings with providers, the patient and/or family. Dr Susan Cooper [facility] For Inpatient follow-up with [facility] physician please call [facility] at . As we are not an outpatient service for any post hospital discharge needs please contact the hospital for assistance. If you have any questions for the [facility] physicians or need to reconsult for clinical or diagnostic changes please contact us via [facility] at . Non-radiologist review of imaging performed to assist with emergent clinical decision-making. Remote physician workstations do not possess the same resolution, calibration, or diagnostic capabilities as hospital-based radiology reading stations, and formal radiologist read is necessary. Signature :Connor Cooper
--- NOTE | 2025-05-30 06:42 | EDNOTE_ITS ---
Neuro Symptoms Deficit-RME/HPI General Chief Complaint: Neuro Symptoms/Deficit Stated Complaint: CHEST PAIN/UNABLE TO TALK Time Seen by Provider: 05/30/25 06:24 Source: patient and EMS Arrival date/time: 05/30/25 06:21 Mode of arrival: EMS Limitations: no limitations RME / HPI Last Observed Normal: 20:00 Timing confirmed by: spouse Location: speech and right arm History of same: Yes Severity: severe Quality: weak Relieving factors: none Exacerbating factors: none On Anticoagulants: Yes Associated symptoms: chest pain and weakness Treatments Prior to Arrival: Aspirin (ASPIRIN STILL IN MOUTH) RME / HPI Narrative: 85 year old male with history of CVA, CAD s/p PCI, peripheral vascular disease s/p femorofemoral bypass, distal abdominal aortic aneurysm s/p endovascular stent graft, hypertension, hyperlipidemia presents to the ED BIBA from home for evaluation of difficulty speaking this morning. Per medics, on scene reported the patient had woken up and complained of chest pain. State as she was trying to give patient his Aspirin and Nitro he was having difficulty speaking, prompting calling 911. Patient was last known well at 8PM last night before going to bed. Per medics, EKG on scene was negative for acute ischemic changes. Prehospital BG 209 and blood pressure 186/91. denies any recent illness. Related Data Home Medications ?Medication ?Instructions ?Recorded ?Confirmed aspirin 81 mg tablet,delayed 81 mg PO DAILY 09/17/21 0 12/08/23 release duloxetine 30 mg capsule,delayed 30 mg PO BID 12/02/23 12/08/23 release (Cymbalta) gabapentin 300 mg capsule 300 mg PO QID 12/02/2312/07 galcanezumab-gnlm 120 mg/mL 120 mg subcut QMONTH 12/0112/08/23 subcutaneous pen injector (Emgality Pen) losartan 100 mg tablet 100 mg PO QDAY 12/02/2311/18 Held on 12/09/23. Instructions: Resume on 12/23/23. Has been held and placed on 50mg daily dose, will follow up with PCP and [employer] libr[employer] to make any dose adjustment within 2 weeks. Previous Rx's ?Medication ?Instructions ?Recorded tramadol 50 mg tablet 50 mg PO TID PRN pain #21 ta bs 12/05/20 atorvastatin 80 mg tablet 80 mg PO HS 30 days #30 tabs 12/09/23 empagliflozin 10 mg tablet 10 mg PO QAM 30 days #30 ta bs 12/09/23 (Jardiance) Allergies Allergy/AdvReac Type Severity Reaction Status Date / Time No Known Allergies Allergy Verified 01/20/25 16:40 Review of Systems Review of Systems Systems Reviewed: All systems reviewed, normal except as documented Past Medical History Past Medical History NEUROLOGIC: Positive Neurological Disorders and Migraine CARDIAC: Positive Cardiac Disorders, Atrial Fibrillation, Angina, Atherosclerotic Heart Disease, Peripheral Vascular Disease and Hypertension RESPIRATORY: Positive Bronchitis GENITOURINARY: Positive Genitourinary Disorders, Kidney Stones and Benign Prostatic Hyperplasia MUSCULOSKELETAL: Positive Musculoskeletal Disorders and Osteoporosis ENT: Positive Cataracts PSYCHO/SOCIAL: Positive Depression and Anxiety OTHER HISTORY: Positive Hospitalization Family History FAMILY HISTORY: Positive Family Psychiatric Problems and Family Cardiac Disorders Surgical History SURGICAL: Positive Cardiac Surgery, Coronary Stent, Angiogram, Ear Surgery, Tympanostomy Tube, Eye Surgery, Throat Surgery and Vasectomy Social History SMOKING STATUS: Unknown if ever smoked SECOND HAND EXPOSURE: No SUBSTANCE USE: does not use ED Exam General Limitations: Present no limitations General appearance: Present alert and other (patient was unable to speak though appears he understands what we are saying) Head Head exam: Present atraumatic, normocephalic and normal inspection Eye Eye exam: Present normal appearance, PERRL and EOMI ENT ENT exam: Present normal exam, normal oropharynx and mucous membranes moist Neck Neck exam: Present normal inspection, full ROM and trachea midline Chest Chest inspection: Present normal inspection and symmetric chest wall rise Respiratory Respiratory exam: Present normal lung sounds bilaterally Cardiovascular Cardiovascular exam: Present regular rate, normal rhythm and normal heart sounds Abdominal Exam Abdominal exam: Present soft and normal bowel sounds Extremities Exam Extremities exam: Present other (Weakness of the right arm and right leg, 4/5. The left extremities strength is 4+/5. ) Back Exam Back exam: Present normal inspection and full ROM Neurological Exam Neurological exam: Present alert (patient was unable to speak though appears he understands what we are saying. Weakness of the right arm and right leg, 4/5. The left extremities strength is 4+/5. ) and other (Weakness of the right arm and right leg, 4/5. The left extremities strength is 4+/5. ) Psychiatric Psychiatric exam: Present normal affect and normal mood Skin Skin exam: Present warm, dry, intact and normal color Course Quality Measures Suspected type of Stroke: Non Acute Last known well (date): 05/29/25 Last known well (time): 20:00 Tenecteplase given: Reason(s) TPA not given: Outside the time window not given stroke Orders Category Date Time Status Admit to Inpatient Status Routine Admission 05/30/25 09:35 Active Patient Condition Routine Admission 05/30/25 09:35 Ordered Aspiration precautions NOW Care 05/30/25 09:36 Active Bedside Blood Glucose NOW Care 05/30/25 06:25 Active COVID-19 Screening Questionnaire NOW Care 05/30/25 09:35 Active Manager Commodities NOW Care 05/30/25 06:25 Active Manager Commodities now Care 05/30/25 09:35 Active Continuous Pulse Oximetry NOW Care 05/30/25 06:25 Completed Continuous Pulse Oximetry QSHIFT Care 05/30/25 09:35 Completed Decision to Admit X1 Care 05/30/25 09:35 Completed EKG (ED ONLY) *Do not use* NOW Care 05/30/25 06:41 Completed Insert IV NOW Care 05/30/25 06:25 Active MRI Screening NOW Care 05/30/25 09:36 Active NIH Stroke Scale now Care 05/30/25 06:25 Active NPO NOW Care 05/30/25 06:25 Active NPO NOW Care 05/30/25 09:35 Active Neuro Check Q15MIN Care 05/30/25 06:25 Active Neuro Check Q4H Care 05/30/25 09:35 Active Notify provider NEEDED Care 05/30/25 09:35 Active Nurse Swallow Screen x1 Care 05/30/25 06:25 Active Nurse Swallow Screen x1 Care 05/30/25 09:35 Active Consult to Neurology / Tele-Neurology Routine Cons 05/30/25 06:25 Active Consult to Neurology / Tele-Neurology Routine Cons 05/30/25 09:37 Active Referral Physical Therapy Routine Cons 05/30/25 09:37 Active Referral Speech Therapy Routine Cons 05/30/25 09:38 Active Diet NPO (NOW) Diet 05/30/25 09:35 Active CA echo doppler complete Routine Exams 05/30/25 09:[address] angio stroke protocol Stat Exams 05/30/25 06:[address] stroke protocol Stat Exams 05/30/25 06:25 Completed EKG (ED Only) Stat Exams 05/30/25 06:41 Ordered MR stroke protocol brain wo con with MRA head and neck Exams 05/30/25 09:36 Taken Stat XR chest 1V portable Stat Exams 05/30/25 07:03 Completed Alcohol, Blood Medical Stat Lab 05/30/25 06:50 Completed B-Type Natriuretic Peptide Stat Lab 05/30/25 06:50 Completed Basic Metabolic Panel AM DRAW Lab 05/31/25 05:00 Ordered Basic Metabolic Panel AM DRAW Lab 06/01/25 05:00 Ordered Basic Metabolic Panel AM DRAW Lab 06/02/25 05:00 Ordered CBC AM DRAW Lab 05/31/25 05:00 Ordered CBC AM DRAW Lab 06/01/25 05:00 Ordered CBC AM DRAW Lab 06/02/25 05:00 Ordered CBC Stat Lab 05/30/25 06:50 Completed Comprehensive Metabolic Panel Stat Lab 05/30/25 06:50 Completed Drug Screen,Urine Stat Lab 05/30/25 07:08 Completed Lipid Panel AM DRAW Lab 05/31/25 05:00 Ordered Magnesium Stat Lab 05/30/25 06:50 Completed Partial Thromboplastin Time Stat Lab 05/30/25 06:50 Completed Prothrombin Time with INR Stat Lab 05/30/25 06:50 Completed Troponin I Stat Lab 05/30/25 06:50 Completed Urinalysis Stat Lab 05/30/25 07:08 Completed Urine Culture Stat Lab 05/30/25 07:08 Received Aspirin Supp Med 05/31/25 09:00 Active 300 mg DE DAILY Aspirin Supp Med 05/30/25 06:49 Discontinued 300 mg DE X1 ONE Atorvastatin Calcium [Lipitor] Med 05/30/25 21:00 Active 40 mg PO HS Heparin Inj Med 05/30/25 14:00 Active 5,000 unit SC Q8HR Labetalol* IV [Trandate IV] Med 05/30/25 09:34 Active 10 mg IVP Q15M PRN Morphine* Inj Med 05/30/25 06:55 Discontinued 2 mg IVP X1 ONE Ondansetron Inj [Zofran Inj] Med 05/30/25 09:34 Active 4 mg IVP Q4HR PRN Ondansetron Inj [Zofran Inj] Med 05/30/25 06:55 Discontinued 4 mg IVP X1 ONE Sodium Chloride 0.9% 1000 ml [Ns] 1,000 ml Med 05/30/25 06:30 Active IV Q10H Code Status Routine Oth 05/30/25 09:34 Ordered Oxygen Delivery NOW RT 05/30/25 06:25 Active Oxygen Delivery NOW RT 05/30/25 09:35 Active Referral Medical Delivery Driver NOW SS 05/30/25 09:35 Active Vital Signs Vital signs: Vital Signs Pulse Rate 64 05/30/25 06:28 Respiratory Rate 20 05/30/25 06:28 Blood Pressure 198/105 H 05/30/25 06:28 Pulse Oximetry (%) 98 05/30/25 06:28 Oxygen Delivery Method Room Air 05/30/25 06:28 Pulse ox is 98% on room air which is adequate. Neuro Symptoms / Deficit MDM Narrative MDM Narrative:: INimco, erinn scribing for and in the presence of Dr. Gomez. 0645a: I spoke with teleneurologist Dr. Cooper, states patient is not a TNK candidate. LKW > 4.5 hours. 0930a: I spoke with hospitalist Dr. Casper for admission. Discussed patients PMHx, HPI, ED course, exam findings, labs, and radiology results. The hospitalist agree to accept the patient for admission. Patient data External records reviewed:: [facility] previous records and EMS form Clinical information provided by:: EMS and spouse Social determinants that could affect healthcare access:: none Patient has the following chronic illnesses:: CVA, CAD s/p PCI, peripheral vascular disease s/p femorofemoral bypass, distal abdominal aortic aneurysm s/p endovascular stent graft, hypertension, hyp erlipidemia How is presenting disease/condition affected by chronic disease/condition?: exacerbated by Evaluation data The following diagnostics were reviewed and interpreted by me:: lab results, radiology exam(s) and EKG tracing(s) (EKG @ 06:41 AM. Sinus tachycardia, rate 143, right ventricular hypertrophy, motion artifact, no STEMI. ) Lab and/or radiology exams considered but not ordered:: None Interpretation Summary: Ordering Physician: Checo Gomez MD Date of Service: 05/30/25 Procedure(s): CT stroke protocol Accession Number(s): [id number] cc: Checo Gomez MD; Abraham Mcclain MD~ Examination: CT brain head without contrast. 2-D sagittal coronal reconstructions Date and time of exam: May 30, 2025, 630 hours INDICATIONS: Stroke alert CTDI: vol (mGy): 56.0 DLP: (mGycm): 1274 Technique: Multiple CT axial sections of the brain have been obtained, 5 mm slice thickness. Contrast has not been administered. 2-D sagittal, coronal reconstructions have been obtained Low dose protocols were performed. One or more of the following dose reduction techniques were used; automated exposure control, adjustment of the mA and/or KV according to patient size, use of iterative reconstruction technique. Findings: No significant ventricular enlargement. Small old infarct left cerebellar hemisphere left basal ganglia left caudate nucleus Intra-axial or extra-axial hemorrhage density is not seen. No mass effect or midline shift Basal cisterns are not remarkable. Fourth ventricle is midline. Cranial vault intact. Impression: Negative for acute hemorrhage, mass effect or midline shift Dictated By: Abraham Mcclain MD Signed By: <Electronically signed by Abraham Mcclain MD in OV> 05/30/25 0650 == Ordering Physician: Checo Gomez MD Date of Service: 05/30/25 Procedure(s): CT angio stroke protocol Accession Number(s): [id number] cc: Checo Gomez MD; Abraham Mcclain MD~ Examination: CTA carotids with intravenous contrast CTA brain, head with intravenous contrast. 2-D sagittal, coronal reconstructions. 3-D reconstructions. Exam date and time: May 30, 2025629 hours INDICATIONS: Stroke alert, generalized weakness unable to talk or walk beginning 1 hour ago CTDI: vol (mGy) 27.51 DLP: (mGycm) 589 Technique: Multiple CTA axial brain, head carotid images post intravenous contrast injection 75 cc, [id number]. 2-D sagittal, coronal reconstructions. 3-D reconstructions, 3-D post processing including vascular maximum intensity projection images. Low dose protocols were performed. One or more of the following dose reduction techniques were used; automated exposure control, adjustment of the mA and/or KV according to patient size, use of iterative reconstruction technique. Findings: No significant common carotid carotid bifurcation or internal carotid artery stenoses Dominant left vertebral artery, no critical vertebral artery stenoses in the neck Intracranial vertebral arteries basilar artery and posterior cerebral artery branches do fill Significant stenosis in the P3 segment left posterior cerebral artery, 80 to 90% Petrous juxtasellar portions internal carotid arteries intact No large vessel occlusions involving M1 segments middle cerebral arteries middle cerebral artery trifurcation vessels or anterior cerebral arteries IMPRESSION: No significant neck arterial stenoses No cerebral large vessel arterial occlusions or thrombus Dictated By: Abraham Mcclain MD Signed By: <Electronically signed by Abraham Mcclain MD in OV> 05/30/25 0655 Ordering Physician: Checo Gomez MD Date of Service: 05/30/25 Procedure(s): XR chest 1V portable Accession Number(s): [id number] cc: Checo Gomez MD; Abraham Maxwell MD~ AP portable upright chest film on 05/30/2025 at 7:07 a.m. Clinical indication shortness of breath and chest pain today Comparison study 01/20/2025 FINDINGS: On today's film the patient is taken a much less optimal inspiration with higher position of the diaphragm, which creates crowding of the pulmonary vasculature to the hide diaphragm on the right pretty much hide is a huge very thick C. difficile shaped area of chronic pulmonary fibrosis in the right lower lobe, but this is stable and unchanged. However in the medial base of the right lower lobe there does appear to be some mild interstitial infiltrate, this area was clear on the prior film. No other definite infiltrates are seen anywhere else. In addition the patient is status post surgical fusion at several levels in the lower cervical spine, this is also unchanged. And finally, there is moderate definite dilatation of the thoracic aorta just also calcified consistent with hypertensive and/or atherosclerotic cardiovascular disease IMPRESSION: 1. Numerous findings are noted above which are stable. 2. There does appear to be an acute interstitial infiltrate in the medial base of the right lower lobe which was not present previously, this is consistent with a very small area of interstitial pneumonia 3. There is exceedingly heavy calcification of the left main and circumflex coronary arteries. Dictated By: Abraham Maxwell MD Signed By: <Electronically signed by Abraham Maxwell MD in OV> 05/30/25 0739 Medications / Prescriptions Medications or Prescriptions considered but not ordered:: None Medication administrations:: Medication Administration History Aspirin (Aspirin 300 Mg Supp) 300 mg DE DAILY KRISTEN Stop: 06/30/25 08:59 Atorvastatin Calcium (Atorvastatin Calcium 20 Mg Tablet) 40 mg PO HS KRISTEN Stop: 06/29/25 20:59 Heparin Sodium (Porcine) (Heparin Sod Inj 5000 Unit/Ml Vial) 5,000 unit SC Q8HR KRISTEN Stop: 06/13/25 13:59 Sodium Chloride (Ns) 1,000 mls @ 100 mls/hr IV Q10H KRISTEN Stop: 06/29/25 06:29 Last Admin: 05/30/25 07:03 Dose: 100 mls/hr Documented By: EE Labetalol HCl (Labetalol Inj 5 Mg/Ml Vial 4 Ml) 10 mg IVP Q15M PRN PRN Reason: hypertension Ondansetron HCl (Ondansetron Inj 2 Mg/Ml Inj 2 Ml) 4 mg IVP Q4HR PRN PRN Reason: NAUSEA OR VOMITING Stop: 06/29/25 09:33 Discontinued Medications Aspirin (Aspirin 300 Mg Supp) 300 mg DE X1 ONE Stop: 05/30/25 06:50 Last Admin: 05/30/25 07:02 Dose: 300 mg Documented By: EE Morphine Sulfate (Morphine Sulf Inj 4 Mg/Ml Vial) 2 mg IVP X1 ONE Stop: 05/30/25 06:56 Last Admin: 05/30/25 07:02 Dose: 2 mg Documented By: EE Ondansetron HCl (Ondansetron Inj 2 Mg/Ml Inj 2 Ml) 4 mg IVP X1 ONE; Protocol Stop: 05/30/25 06:56 Last Admin: 05/30/25 07:02 Dose: 4 mg Documented By: PINEDA See above Consultations Consultation(s) initiated? (list below): Yes Consultation #1 (Physician, Specialty, Details): See MDM Diagnosis Neuro Differential Diagnosis: subarachnoid hemorrhage, cerebrovascular accident and transient cerebral ischemia Most likely diagnosis given after review of the tests above:: Speech loss CVA Admission Indicated Admission indicated?: indicated Admission Request Was there a request for admission?: Yes Admission Attestation Admission request attestation: Discussed case with [] from Hospitalist service regarding admission. Discussed patients ED course, exam findings, labs, and radiology results. The Hospitalist [agrees,declines] to accept the patient for admission. Disposition Plan Disposition Plan: Admit Critical Care Time Critical Care Time Critical Care Time: Yes Total Critical Care Time (min.): 35 Attestation: The high probability of sudden, clinically significant deterioration in the patient's condition required the highest level of my preparedness to intervene urgently. The services I provided to this patient were to treat and/or prevent clinically significant deterioration. Services included the following: chart data review, reviewing nursing notes and/or old charts, documentation time, big machine consultant collaboration regarding findings and treatment options, medication orders and management, direct patient care, vital sign assessments and ordering, interpreting and reviewing diagnostic studies and lab tests. Aggregate critical care time includes only time during which I was engaged in work directly related to the patient's care, as described above, whether at bedside or elsewhere in the Emergency Department. It did not include time spent performing other reported procedures or the services of residents, students, nurses or physician assistants. Discharge Plan Plan Patient Disposition: Admit Acute Care w/in Hospital Discharge Disposition comment: Dr. Casper Problem List Clinical Impression: CVA (cerebral vascular accident), Aphasia
--- NOTE | 2025-05-30 06:52 | PC.NURSE ---
PT BIBA WITH C/O CHEST PAIN, ON ARRIVAL EMS STATED THEY NOTED PT WAS HAVING DIFFICULTY SPEAKING WHICH IS NOT NORMAL FOR PT PER ON SCENE PT WAS FOLLOWING ALL COMMANDS AND A/O TO SELF. PER EMS PT WAS NOTED TO HAVED HUMBLE GENERALIZED WEAKNESS. FSBS FOR EMS 209. PT HAS HAD HX OF CVA, IT IS UNKNOWN HOW LONG AGO. PT AT BASELINE HAS NOT RESIDUAL DEFICITS FROM PRIOR STROKES. ON ARRIVAL PT APPEARED TO BE GCS 14, A/OX SELF. PT ASSESSED BY DR MAJANO IN AMBULANCE [facility] AND STROKE ALERT INITIATED. PT TAKEN TO CT VIA EMS GURNEY.
[2025-05-30] MEDS: ASPIRIN 300 MG SUPP PR (07:02)
[2025-05-30] MEDS: MORPHINE SULF INJ 4 MG/ML VIAL 2 MG IVP (07:02)
[2025-05-30] MEDS: ONDANSETRON INJ 2 MG/ML INJ 2 ML 4 MG IVP (07:02)
[2025-05-30 07:03] LABS: Basophils # (Auto) 0.0 Thou/mm3 (0.0-0.2); Basophils % (Auto) 1 % (0-2.5); Eosinophils # (Auto) 0.2 Thou/mm3 (0.0-0.5); Eosinophils % (Auto) 5 % (0-10); Hematocrit 46.4 % (41.0-53.0); Hemoglobin 14.7 g/dL (13.5-16.0); Immature Granulocytes Auto 0.01 Thou/mm3 (0.00-0.00); Lymphocytes # (Auto) 2.1 Thou/mm3 (1.0-4.8); Lymphocytes % (Auto) 47 % (10-50); Mean Corpuscular HGB Conc 31.7 g/dl (31.0-37.0); Mean Corpuscular Hemoglobin 29.2 pg (25.0-35.0); Mean Corpuscular Volume 92 fL (80-100); Monocytes # (Auto) 0.5 Thou/mm3 (0.0-0.8); Monocytes % (Auto) 12 % (0-12); Neutrophils # (Auto) 1.5 Thou/mm3 (1.8-7.7); Neutrophils % (Auto) 35 % (37-80); Nucleated Red Blood Cell # 0.00 Thou/mm3 (0.00-0.00); Nucleated Red Blood Cell % 0 /100 WBC (0); Platelet Count 222 Thou/mm3 (140-440); RDW Standard Deviation 54.7 fL (35.1-43.9); Red Blood Count 5.03 Miln/mm3 (4.50-5.90); White Blood Count 4.4 Thou/mm3 (3.8-10.6)
[2025-05-30] MEDS: SODIUM CHLORIDE 0.9% 1000 ML 1,000 ML 100 ML IV ×2 (07:03→19:36)
--- NOTE | 2025-05-30 07:03 | XR_ITS ---
AP portable upright chest film on 05/30/2025 at 7:07 a.m. Clinical indication shortness of breath and chest pain today Comparison study 01/20/2025 FINDINGS: On today's film the patient is taken a much less optimal inspiration with higher position of the diaphragm, which creates crowding of the pulmonary vasculature to the hide diaphragm on the right pretty much hide is a huge very thick C. difficile shaped area of chronic pulmonary fibrosis in the right lower lobe, but this is stable and unchanged. However in the medial base of the right lower lobe there does appear to be some mild interstitial infiltrate, this area was clear on the prior film. No other definite infiltrates are seen anywhere else. In addition the patient is status post surgical fusion at several levels in the lower cervical spine, this is also unchanged. And finally, there is moderate definite dilatation of the thoracic aorta just also calcified consistent with hypertensive and/or atherosclerotic cardiovascular disease IMPRESSION: 1. Numerous findings are noted above which are stable. 2. There does appear to be an acute interstitial infiltrate in the medial base of the right lower lobe which was not present previously, this is consistent with a very small area of interstitial pneumonia 3. There is exceedingly heavy calcification of the left main and circumflex coronary arteries.
[2025-05-30 07:17] LABS: INR 1.0 (0.9-1.3); Partial Thromboplastin Time 25.7 Seconds (22.0-36.0); Prothrombin Time 11.1 Seconds (9.0-12.2)
[2025-05-30 07:28] LABS: Alanine Aminotransferase 30 U/L (10-49); Albumin, Serum 3.9 gm/dL (3.4-4.8); Albumin/Globulin Ratio 1.3 (1.2-2.2); Alcohol, Blood Medical < 3.0 mg/dL (0-10.0); Alkaline Phosphatase 61 U/L (46-116); Anion Gap 9 (7-16); Aspartate Amino Transferase 26 U/L (0-34); BUN/Creatinine Ratio 13 Ratio (12-20); Bilirubin,Total 0.5 mg/dL (0.3-1.2); Blood Urea Nitrogen 12 mg/dL (9-23); Calcium 9.6 mg/dL (8.3-10.6); Calcium (Corrected) 9.7 mg/dL (8.5-10.1); Carbon Dioxide 26.0 mMol/L (20.0-31.0); Chloride 106 mMol/L (98-107); Creatinine (Component) 0.9 mg/dL (0.6-1.3); Estimated Creatinine Clearance 68.3 mL/min (>60); Globulin 3.0 gm/dL (2.3-3.5); Glucose 101 mg/dL (74-106); Magnesium 2.1 mg/dL (1.6-2.6); Osmolality,Calculated 280 (275-295); Potassium 4.2 mMol/L (3.4-5.1); Sodium 141 mMol/L (136-145); Total Protein 6.9 gm/dL (5.7-8.2); eGFR > 60 See Note
[2025-05-30 07:31] LABS: Troponin I 0.208 ng/mL (0.0-0.045)
[2025-05-30 07:49] LABS: Bilirubin,Urine Negative (Negative); Blood,Urine Negative (Negative); Clarity,Urine Clear (Clear/Hazy); Collection Type, Urine Catheter; Color,Urine Lt-Yellow (Lt Yel-Yel); Glucose, Urine 4+ (Negative); Ketones,Urine Negative (Negative); Leukocyte Esterase,Urine Negative (Negative); Nitrite,Urine Negative (Negative); PH,Urine 5.5 (5.0-7.0); Protein,Urine Negative (Neg - Trace); RBC,Urine 2 /hpf (0-3); Squamous Epithelial Cell,Urine < 1 /hpf (0-5); Urobilinogen,Urine Negative mg/dL (0.0-1.0); WBC,Urine < 1 /hpf (0-5)
[2025-05-30 08:00] LABS: B-Type Natriuretic Peptide 26 pg/mL (0-100)
[2025-05-30 08:38] LABS: Amphetamine/Methamp Scrn,U Negative (Negative); Barbiturate Screen,Urine Negative (Negative); Benzodiazepines Screen,Urine Negative (Negative); Benzoylecgonine Screen, Ur Negative (Negative); Fentanyl Screen,Urine Negative (Negative); Opiate Screen,Urine Negative (Negative); THC Screen,Urine Negative (Negative)
[2025-05-30 08:52] LABS: Specific Gravity,Urine 1.010 (1.001-1.035)
--- NOTE | 2025-05-30 09:36 | ECHO_ITS ---
Patient Info Name: Christopher Fisher Age: 85 years : 1940 Gender: Male Ht: 183 cm Wt: 88 kg BSA: 2.13 m2 BP: 168 / 135 mmHg Exam Date: 05/30/2025 1:59 PM Admit Date: 05/30/2025 Site: [facility] Room Number: 250 Patient Status: I Exam Type: CA echo doppler complete President Celebrity Acquistion: Nicole Petersen Ordering Physician: Kush Casper Study Info Indications CVA - Primary Location: S2SX Left Ventricular Outflow Tract Name Value Normal LVOT 2D LVOT Diameter 2.0 cm LVOT Doppler LVOT Peak Velocity 128 cm/s LVOT Mean Gradient 3 mmHg LVOT VTI 27 cm LVOT VTI/AV VTI Ratio 0.8 LVOT Stroke Volume 84 ml Pulmonic Valve Name Value Normal PV Doppler PV Peak Velocity 95 cm/s Mitral Valve Name Value Normal MV Doppler MV Decel [place] 482 cm/s2 MV PHT 35 ms MV Area (PHT) 6.3 cm2 4.0-5.0 MV Diastolic Function MV E Peak Velocity 58 cm/s MV A Peak Velocity 106 cm/s MV E/A 0.5 MV Annular TDI MV Septal e' Velocity 7.3 cm/s MV E/e' (Septal) 7.9 MV Lateral e' Velocity 8.2 cm/s MV E/e' (Lateral) 7.1 MV e' Average 7.73 cm/s MV E/e' (Average) 7.5 Tricuspid Valve Name Value Normal TV Regurgitation Doppler TR Peak Velocity 331 cm/s Estimated PAP/RSVP RA Pressure 3 mmHg <=5 PA Systolic Pressure 47 mmHg <36 RV Systolic Pressure 47 mmHg <36 Aortic Valve Name Value Normal AV 2D/MM AV Cusp Sep (MM) 1.9 cm AV Doppler AV Peak Velocity 165 cm/s AV Mean Gradient 6 mmHg AV VTI 35 cm AV Area (Cont Eq VTI) 2.4 cm2 >=3.0 AV Area (Cont Eq Javier) 2.4 cm2 AV DI (Javier) 0.78 AV Regurgitation 2D LVOT Area 3.1 cm2 Ventricles Name Value Normal LV Dimensions 2D/MM IVS Diastolic Thickness (2D) 1.0 cm 0.6-1.0 LVID Diastole (2D) 5.0 cm 4.2-5.8 LVIW Diastolic Thickness (2D) 1.4 cm 0.6-1.0 LVID Systole (2D) 3.2 cm 2.5-4.0 LVOT Diameter 2.0 cm LV Mass (2D Cubed) 233.75 g 88.00-224.00 LV Mass Index (2D Cubed) 110 g/m2 49-115 Relative Wall Thickness (2D) 0.56 <=0.42 IVS/LVIW Diastolic Thickness (2D) 0.71 0.00-1.50 LV Fractional Shortening/Ejection Fraction 2D/MM LV Fractional Shortening (2D) 36 % 25-43 LV EF (2D Teichholz) 65 % Atria Name Value Normal LA Dimensions LA Volume (4C A-L) 44 ml LA Volume (BP A-L) 63 ml Left Ventricle Left ventricular chamber dimension is normal. Left ventricular systolic function is mildly reduced with visually estimated ejection fraction of 45-50%. There is concentric remodeling noted in the left ventricle. The apex, and mid inferoseptal are hypokinetic. The basal inferior wall, mid inferior wall, basal anterior wall, mid anterior wall, basal inferoseptal, basal anterolateral wall, mid anterolateral wall, basal anteroseptal, mid anteroseptal, basal inferolateral wall, and mid inferolateral wall are not scored. Left ventricular segmental wall motion is abnormal. There is grade I diastolic dysfunction in the left ventricle. Right Ventricle Right ventricular chamber dimension is normal. Right ventricular systolic function is normal. Left Atrium Left atrial chamber dimension is normal. Right Atrium Right atrial chamber dimension is normal. Aortic Valve The aortic valve is trileaflet. There is mild aortic valve sclerosis. There is no aortic valve stenosis with a peak velocity of 165 cm/s, mean gradient of 6 mmHg, and aortic valve area of 2.4 cm2. There is no aortic valve regurgitation. Pulmonic Valve The pulmonic valve is normal. There is no pulmonic valve stenosis. There is no pulmonic regurgitation. Mitral Valve The mitral valve has normal leaflets. There is no mitral valve stenosis. There is mild mitral valve regurgitation. Tricuspid Valve The tricuspid valve leaflets are normal. There is no tricuspid valve stenosis. There is mild tricuspid valve regurgitation. Pulmonary hypertension, estimated pulmonary arterial systolic pressure is 47 mmHg and systemic blood pressure of 168 mmHg in systole. Pericardium/Pleural The pericardium appears normal. There is no pericardial effusion. No pleural effusion visualized. Inferior Vena Cava Normal inferior vena cava with >50% collapse upon inspiration consistent with normal right atrial pressure, 3 mmHg. Aorta The aortic measurements are indexed to age and body surface area. The aortic root at the sinus of Valsalva is not well visualized. The prox ascending aorta is not well visualized. Summary 1. Left ventricle size is normal and systolic function is mildly reduced. Estimated ejection fraction is 45-50%. There is grade I diastolic dysfunction. 2. Right ventricle chamber size is normal and systolic function is normal. Estimated RVSP is 47 mmHg with RAP 3. 3. There is mild aortic valve sclerosis with no stenosis and no regurgitation. 4. There is mild mitral and tricuspid valve regurgitation. 5. Normal IVC with estimated RA pressure 3 mmHg. Report Signatures Finalized by Garima Cardona on 05/31/2025 12:25 AM
--- NOTE | 2025-05-30 09:36 | XR_ITS ---
Examinations: MRI Brain without intravenous contrast. MRA brain without intravenous contrast. MRA carotids without intravenous contrast 3-D vascular reconstructions Date and time of exam: 05/30/2025 at 11:15 a.m. Comparison is made with an MRI dated 12/04/2021 INDICATION: Focal neurologic defect, stroke suspected. Difficulty speaking and walking, bilateral weakness Technique: Multiple axial and sagittal images of the brain have been obtained MRA brain carotid images without contrast obtained, including 3-D postprocessing, vascular maximum intensity projection images Findings: On the previous MRI the patient had a 9 mm focal acute infarct in the posterior thalamus on the left side. In that location there is now a fluid intensity lacune secondary to the previous focal infarct. There is superiorly extensive hyperintense signal involving the periventricular white matter, associated with moderate definite ventricular enlargement. These areas of fluid intensity signal around the enlarged ventricles was present on the previous MRI study, however they have have enlarged significantly. There are numerous small focal hyperintensities involving the periventricular white matter and the lentiform nucleus on the right which were not present on the prior study and which represent progression of chronic ischemic changes in the white matter there is also now a hyperintense elongated 13 mm nodular density along the posterolateral margin of the left lateral ventricle, this is a new finding, however the ADC map shows this to be related to T2 shine through, hence this is not related to a new acute infarct. It does relate to a previous localized infarct which had not been present on the initial MRI study. As indicated, moderate enlargement of the ventricular system, there is a very large cavum septum pellucida in the midline this is unchanged, its a variation of normal anatomy. On images higher up near the parietal convexities, there is very extensive hyperintense signal involving all of the subcortical white matter There are several patchy ill-defined areas of mild increased signal seen bilaterally in the peace little bit more prominent on the left side of midline. In the cerebellum there is a small chronic lacunar infarct peripherally in the left cerebellar hemisphere. Then further caudad there are 3 tiny chronic lacunar infarcts in the very inferior aspect of the left cerebellar hemisphere. IMPRESSION: 1. No acute lacunar infarcts are seen. 2. There is a small chronic lacunar infarct along the lateral margin of the left lateral ventricle which was not present on the previous MRI, but the ADC map indicates that this is not an acute infarct, but this is related to a chronic area of abnormal signal in the white matter. 3 there is very extensive patchy and confluent abnormal hyperintense signal involving the periventricular and subcortical white matter bilaterally. 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 There are ill-defined hazy areas of mild abnormal signal involving the peace most prominent on the left side. This also relates to chronic microvascular angiopathy/ischemia 5. There are a total of 4 focal lacunes in the left cerebellar hemisphere. These are all stable and unchanged, they relate to old remote small focal infarcts. Impression:
--- NOTE | 2025-05-30 12:17 | PC.NURSE ---
attempted to call report at this time nurse said she will call back
[2025-05-30] MEDS: HEPARIN SOD INJ 5000 UNIT/ML VIAL SC ×2 (15:11→21:07)
--- NOTE | 2025-05-30 15:53 | PD.HHHP ---
Documentation for date of: 05/30/25 HPI - Hospitalist History of Present Illness History of present illness: Patient is a 89-year-old male with history of CVA, CAD status post stent, chronic pain, essential hypertension, DM type II, who presented with a chief complaint of difficulty speaking and right leg weakness. He was in his usual state of health until the morning of the day of admission. He woke up complaining of right leg weakness. He was unable to do his usual stuff or verbalize his needs. He reported no changes in vision from his baseline, nausea, vomiting, abdominal pain, chest pain, shortness of breath, or palpitations. Patient reported prior history of CVA. He reported improvement in his symptoms at the time of my evaluation. He takes aspirin because of his heart disease. In the ED, he was borderline hypertensive. The rest of the vital signs were stable. Labs showed mild troponin elevation which appears to be chronic. Glucose was slightly elevated. CT head was negative for acute changes. MRI did show a 9 mm post thalamus CVA. Teleneurology was consulted and recommended rectal aspirin as the patient was unable to take p.o. at the time of presentation. He was admitted for further management. Review of Systems Review of Systems Narrative Review of Systems: General: No fevers, no chills, no weight loss, no sweating, positive for leg weakness Eyes: No changes in vision from baseline. HEENT: No head trauma, no neck trauma, no difficulty swallowing, no nasal congestion, no sore throat. Respiratory: No cough, no sputum production, no shortness of breath. Cardiovascular: Mild intermittent chest pain, no palpitations, no extremity swelling. Abdomen: No abdominal pain, no nausea, no vomiting, no diarrhea, no constipation. Genitourinary: No dysuria, no changes in urine appearance, no changes in urine amount and frequency from baseline Skin: No new rash reported. Musculoskeletal: No muscle pain, no muscle weakness. Neuro: Positive for dizziness and difficulty speaking Psych: No current depressive symptoms. No anxiety. Meds Home Medications and Allergies Home Medications ?Medication ?Instructions ?Recorded ?Confirmed ?Type aspirin 81 mg tablet,delayed 81 mg PO DAILY 09/17/21 12/08/23 History release duloxetine 30 mg capsule,delayed 30 mg PO BID 12/02/23 12/08/23 History release (Cymbalta) gabapentin 300 mg capsule 300 mg PO QID 12/02/23 12/08/23 History galcanezumab-gnlm 120 mg/mL 120 mg subcut QMONTH 12/02/23 12/08/23 History subcutaneous pen injector (Emgality Pen) losartan 100 mg tablet 100 mg PO QDAY 12/02/23 12/08/23 History Held on 12/09/23. Instructions: Resume on 12/23/23. Has been held and placed on 50mg daily dose, will follow up with PCP and qa lead to make any dose adjustment within 2 weeks. Allergies Allergy/AdvReac Type Severity Reaction Status Date / Time No Known Allergies Allergy Verified 01/20/25 16:40 Exam Vital Signs Temp Pulse Resp BP Pulse Ox O2 Del Method 97.6 F 73 16 143/95 H 96 Room Air 05/30/25 12:05 05/30/25 15:31 05/30/25 15:31 05/30/25 12:05 05/30/25 12:05 05/30/25 10:29 Narrative General: Alert and oriented x3. In no acute distress. Eyes: Pupils are equal and reactive to light bilaterally. HEENT: Atraumatic, normocephalic. No JVD noted. Cardiovascular: Normal S1 and S2. Normal rate and regular rhythm. No murmurs appreciated. No peripheral pitting edema noted. No JVD noted. Respiratory: No respiratory distress. Lungs are clear to auscultation bilaterally. No wheezing or crackles heard. Abdomen: Soft, nontender, nondistended. Skin: No rash. Musculoskeletal: No gross injuries. Able to move all 4 extremities. Neuro: Alert and oriented x3. Sensation is intact throughout. His speech was slowed. Strength is 5/5 and symmetric. No focal neuro deficits. Psych: Normal affect and mood. Results - Hospitalist Labs Diagrams: 05/30/25 06:50 05/30/25 06:50 Labs: Short CBC 05/30/25 Range/Units 06:50 WBC 4.4 (3.8-10.6) Thou/mm3 Hgb 14.7 (13.5-16.0) g/dL Hct 46.4 (41.0-53.0) % Plt Count 222 (140-440) Thou/mm3 BMP 05/30/25 06:50 Sodium 141 Potassium 4.2 Chloride 106 Carbon Dioxide 26.0 BUN 12 Creatinine 0.9 Glucose 101 Calcium 9.6 Cardiac Enzymes 05/30/25 Range/Units 06:50 Troponin I 0.208 H* (0.0-0.045) ng/mL Liver Function 05/30/25 Range/Units 06:50 Total Bilirubin 0.5 (0.3-1.2) mg/dL AST 26 (0-34) U/L ALT 30 (10-49) U/L Alkaline Phosphatase 61 (46-116) U/L Albumin 3.9 (3.4-4.8) gm/dL Urine 05/30/25 Range/Units 07:08 Urine Color Lt-Yellow (Lt Yel-Yel) Urine Clarity Clear (Clear/Hazy) Urine pH 5.5 (5.0-7.0) Ur Specific [place] 1.010 (1.001-1.035) Urine Protein Negative (Neg - Trace) Urine Glucose (UA) 4+ A (Negative) Assessment & Plan -Hospitalist Patient Synopsis 85-year-old male with prior history of CVA, CAD status post stent, and hypertension, who presented with a chief complaint of hypophonia, apraxia, and right leg weakness. His symptoms improved at the time of my evaluation but he was found to have 9 mm posterior thalamus infarct. Acute CVA, posterior thalamus History of CVA Risk factors includes age, hypertension, vascular disease, type 2 diabetes, and prior history of CVA CT head is negative for acute changes MRI did show 9 mm posterior thalamus infarct Plan: Continue aspirin Continue atorvastatin Start Plavix 75 mg daily Every 4 hour neurochecks Follow-up echocardiogram PT OT evaluation Neurology consulted Essential hypertension Allowing permissive hypertension in the first 24 hours in the setting of acute CVA IV labetalol for BP less than 220/120 Hyperglycemia Type 2 diabetes mellitus Started sliding scale insulin. Monitor fingersticks Chronic pain Continue gabapentin and duloxetine CODE STATUS is full code DVT prophylaxis with subcutaneous heparin Diet is n.p.o. until speech evaluation Quality Measures Quality Measures stroke Suspected type of Stroke: Non Acute Last known well (date): 05/29/25 Last known well (time): 20:00 Tenecteplase given: Reason(s) Tenecteplase not given: Outside the time window not given Rehab services: PT evaluation ordered VTE Prophylaxis: pharmaceutical Antithrombotic by day 2:: not indicated (describe) Statin ordered: >75 y/o moderate or high intensity dose Anticoagulation ordered for A-fib or flutter (current or hx): not indicated Advance care planning discussed with:: patient
[2025-05-30] MEDS: MECLIZINE HCL 25 MG TABLET PO (16:10)
[2025-05-30] MEDS: CLOPIDOGREL BISULFATE 75 MG TABLET PO (16:10)
[2025-05-30] MEDS: ATORVASTATIN CALCIUM 20 MG TABLET 40 MG PO (20:08)
[2025-05-30] MEDS: GABAPENTIN 100 MG CAPSULE 300 MG PO (21:39)
[2025-05-31] VITALS (7 sets, daily range): BP systolic 144–177; BP diastolic 90–103; PULSE 68–85; RESP 15–98; TEMP 36.2–36.8; O2SAT 96–99; BMI 26.0; BMI 11.0
[2025-05-31] MEDS: SODIUM CHLORIDE 0.9% 1000 ML 1,000 ML 100 ML IV ×2 (05:14→15:07)
[2025-05-31] MEDS: HEPARIN SOD INJ 5000 UNIT/ML VIAL SC ×3 (05:14→21:00)
[2025-05-31 06:19] LABS: Basophils # (Auto) 0.0 Thou/mm3 (0.0-0.2); Basophils % (Auto) 1 % (0-2.5); Eosinophils # (Auto) 0.3 Thou/mm3 (0.0-0.5); Eosinophils % (Auto) 6 % (0-10); Hematocrit 45.6 % (41.0-53.0); Hemoglobin 14.5 g/dL (13.5-16.0); Immature Granulocytes Auto 0.01 Thou/mm3 (0.00-0.00); Lymphocytes # (Auto) 1.8 Thou/mm3 (1.0-4.8); Lymphocytes % (Auto) 41 % (10-50); Mean Corpuscular HGB Conc 31.8 g/dl (31.0-37.0); Mean Corpuscular Hemoglobin 29.4 pg (25.0-35.0); Mean Corpuscular Volume 92 fL (80-100); Monocytes # (Auto) 0.5 Thou/mm3 (0.0-0.8); Monocytes % (Auto) 12 % (0-12); Neutrophils # (Auto) 1.7 Thou/mm3 (1.8-7.7); Neutrophils % (Auto) 40 % (37-80); Nucleated Red Blood Cell # 0.00 Thou/mm3 (0.00-0.00); Nucleated Red Blood Cell % 0 /100 WBC (0); Platelet Count 187 Thou/mm3 (140-440); RDW Standard Deviation 55.0 fL (35.1-43.9); Red Blood Count 4.94 Miln/mm3 (4.50-5.90); White Blood Count 4.4 Thou/mm3 (3.8-10.6)
[2025-05-31 06:43] LABS: Anion Gap 12 (7-16); BUN/Creatinine Ratio 11 Ratio (12-20); Blood Urea Nitrogen 9 mg/dL (9-23); Calcium 8.9 mg/dL (8.3-10.6); Carbon Dioxide 24.6 mMol/L (20.0-31.0); Cardiac Risk Estimate 4.0 RATIO (4.0-6.7); Chloride 107 mMol/L (98-107); Cholesterol 169 mg/dL (132-200); Creatinine (Component) 0.8 mg/dL (0.6-1.3); Estimated Creatinine Clearance 76.8 mL/min (>60); Glucose 84 mg/dL (74-106); HDL Cholesterol 42 mg/dL (40-60); LDL Cholesterol,Calculated 84 mg/dL (0-130); Osmolality,Calculated 284 (275-295); Potassium 4.2 mMol/L (3.4-5.1); Sodium 144 mMol/L (136-145); Triglycerides 215 mg/dL (30-150); eGFR > 60 See Note
[2025-05-31 07:44] LABS: Glucose Estimated Average 123 mg/dL (80-131); Hemoglobin A1C 5.9 % Hgb (4.8-6.0)
--- NOTE | 2025-05-31 07:55 | ESPR_ITS ---
<Statement entered by Aureliano Lam MD - 05/31/25 18:20> I saw and examined patient personally and supervised PGY 1 resident, Dr. Jaquez with formulating a management plan. I agree with the documentation with the exceptions as listed below. MRI brain from 05/30 showed no acute lacunar infarct, however they were chronic multiple lacunar infarcts noted. Currently pending physical therapy evaluation to determine disposition. Neurology, Dr Carter consulted, appreciate recommendations. Plan of care discussed with Attending Dr. Horacio Lam MD PGY 2 Disclaimer: This note was dictated by speech recognition. Minor errors in imaging administrator may be present due to voice recognition software. Documentation for date of: 05/31/25 Subjective Subjective Interval history: Patient seen and examined at bedside; no acute events overnight. Speech and swallow improved, weakness improved but still present in RLE. Exam Vital Signs Temp Pulse Resp BP Pulse Ox O2 Del Method 97.2 F 69 18 175/103 H 96 Room Air 05/31/25 04:00 05/31/25 06:16 05/31/25 06:16 05/31/25 04:00 05/31/25 04:00 05/31/25 04:00 Narrative Exam General: Alert and oriented x3. In no acute distress. Eyes: Pupils are equal and reactive to light bilaterally. HEENT: Atraumatic, normocephalic. No JVD noted. Cardiovascular: Normal S1 and S2. Normal rate and regular rhythm. No murmurs appreciated. No peripheral pitting edema noted. No JVD noted. Respiratory: No respiratory distress. Lungs are clear to auscultation bilaterally. No wheezing or crackles heard. Abdomen: Soft, nontender, nondistended. Skin: No rash. Musculoskeletal: No gross injuries. Able to move all 4 extremities. Neuro: Alert and oriented x3. Sensation is intact throughout. Speech is slowed. Strength is 5/5 in all extremities except RLE, which was 3/5. Psych: Normal affect and mood. Objective Labs 06/01/25 04:20 06/01/25 04:20 Labs: Laboratory Results - last 24 hr 05/30/25 05/30/25 05/31/25 06:50 07:08 04:29 WBC 4.4 RBC 4.94 Hgb 14.5 Hct 45.6 MCV 92 MCH 29.4 MCHC 31.8 RDW Std Deviation 55.0 H Plt Count 187 D Neut % (Auto) 40 Lymph % (Auto) 41 [place] % (Auto) 12 Eos % (Auto) 6 Baso % (Auto) 1 Neut # (Auto) 1.7 L Lymph # (Auto) 1.8 [place] # (Auto) 0.5 Eos # (Auto) 0.3 Baso # (Auto) 0.0 Immature Gran # (Auto) 0.01 H Absolute Nucleated RBC 0.00 Immature Gran % 0 Nucleated RBC % 0 Sodium 144 Potassium 4.2 Chloride 107 Carbon Dioxide 24.6 Anion Gap 12 BUN 9 Creatinine 0.8 Estim Creat Clear Calc 76.8 eGFR > 60 BUN/Creatinine Ratio 11 L Glucose [address] Glu mg/dL 123 Hemoglobin A1c 5.9 Calculated Osmolality 284 Calcium 8.9 B-Natriuretic Peptide 26 Triglycerides 215 H Cholesterol 169 LDL Cholesterol, Calc 84 HDL Cholesterol 42 Cholesterol/HDL Ratio 4.0 Ur Collection Type Catheter Urine Color Lt-Yellow Urine Clarity Clear Urine pH 5.5 Ur Specific [place] 1.010 Urine Protein Negative Urine Glucose (UA) 4+ A Urine Ketones Negative Urine Blood Negative Urine Nitrite Negative Urine Bilirubin Negative Urine Urobilinogen (Auto) Negative Ur Leukocyte Esterase Negative Urine RBC 2 Urine WBC < 1 Ur Squamous Epith Cells < 1 Urine Bacteria None Urine Opiates Screen Negative Urine Fentanyl Screen Negative Ur Barbiturates Screen Negative U Amphetamin/Meth Scrn Negative U Benzodiazepines Scrn Negative U Cocaine Metab Screen Negative U Marijuana (THC) Screen Negative Quality Measures Quality Measures stroke Suspected type of Stroke: Non Acute Last known well (date): 05/29/25 Last known well (time): 20:00 Tenecteplase given: Reason(s) Tenecteplase not given: Outside the time window not given Rehab services: PT evaluation ordered VTE Prophylaxis: pharmaceutical Antithrombotic by day 2:: ordered Statin ordered: >75 y/o moderate or high intensity dose Anticoagulation ordered for A-fib or flutter (current or hx): ordered Advance care planning discussed with:: other Assessment & Plan Assessment Current Active Medications: Generic Name Dose Route Start Last Admin Trade Name Freq PRN Reason Stop Dose Admin Albuterol/Ipratropium 3 ml 05/30/25 16:04 Albuterol/Ipratropium (Duoneb) Rt Haley 3 Ml Nebu INH 06/29/25 16:03 Q6HRRT PRN SHORTNESS OF BREATH OR WHEEZE Aspirin 81 mg 05/31/25 09:00 Aspirin Ec 81 Mg Tabec PO 06/30/25 08:59 QDAY KRISTEN Atorvastatin Calcium 40 mg 05/30/25 21:00 05/30/25 20:08 Atorvastatin Calcium 20 Mg Tablet PO 06/29/25 20:59 40 mg HS KRISTEN Administration Clopidogrel Bisulfate 75 mg 05/30/25 16:15 05/30/25 16:10 Clopidogrel Bisulfate 75 Mg Tablet PO 06/29/25 16:14 75 mg QDAY KRISTEN Administration Duloxetine HCl 30 mg 05/31/25 09:00 Duloxetine Hcl 30 Mg Capsule PO 06/30/25 08:59 QDAY KRISTEN Gabapentin 300 mg 05/31/25 09:00 Gabapentin 300 Mg Capsule PO 06/30/25 08:59 QDAY KRISTEN Heparin Sodium (Porcine) 5,000 unit 05/30/25 14:00 05/31/25 05:14 Heparin Sod Inj 5000 Unit/Ml Vial SC 06/13/25 13:59 5,000 unit Q8HR KRISTEN Administration Sodium Chloride 1,000 mls @ 100 mls/hr 05/30/25 06:30 05/31/25 05:14 Ns IV 06/29/25 06:29 100 mls/hr Q10H KRISTEN Administration Ondansetron HCl 4 mg 05/30/25 09:34 Ondansetron Inj 2 Mg/Ml Inj 2 Ml IVP 06/29/25 09:33 Q4HR PRN NAUSEA OR VOMITING Plan Patient is a 85-year-old male with PMH of CVA, CAD post stent, and hypertension, presenting with a chief complaint of hypophonia, apraxia, and right leg weakness. He was found to have 9 mm posterior thalamus infarct. #Acute CVA, posterior thalamus #History of CVA #HfPEF Risk factors includes age, hypertension, vascular disease, type 2 diabetes, and prior history of CVA. CT head negative for acute changes; MRI showed 9 mm posterior thalamus infarct Echo showed EF 45-50% Plan: Continue aspirin Continue atorvastatin Plavix 75 mg daily Q4H neurochecks PT OT evaluation Neurology consulted #Essential hypertension Allowed permissive hypertension in the first 24 hours in the setting of acute CVA BP today 175/103 Plan: IV labetalol for BP less than 220/120 #Type 2 diabetes mellitus Started sliding scale insulin. Monitor fingersticks #Chronic pain Continue gabapentin and duloxetine Disposition: Tele DVT prophylaxis: Heparin 5000 subq Q8H GI prophylaxis: Diet: Cardiac Lines: PIV CODE STATUS: Full This case was discussed with my attending physician, Dr. Villa, and senior resident, Dr. Lam. Teodoro Jaquez, PGY1 Attending Provider Attestation/Addendum 85-year-old male patient with hypertension and diabetes, previous CVA, CHF was admitted for strokelike symptoms. MRI revealed posterior thalamic stroke. Continue medical management. Follow-up with neurology. Continue to monitor for cardiac dysrhythmias. I discussed with and supervised the resident physician who took care of this patient. I agree with the assessment and plan as above.
[2025-05-31] MEDS: DULoxetine HCL 30 MG CAPSULE PO (09:28)
[2025-05-31] MEDS: GABAPENTIN 300 MG CAPSULE PO (09:28)
[2025-05-31] MEDS: CLOPIDOGREL BISULFATE 75 MG TABLET PO (09:28)
[2025-05-31] MEDS: ASPIRIN EC 81 MG TABEC PO (09:28)
--- NOTE | 2025-05-31 13:41 | PD.VPROG1 ---
Telemedicine visit statement This visit was conducted with the use of interactive audio and video telecommunications system that permits real time communication between the patient and the provider. Patient's verbal consent for virtual visit was obtained on 05/31/25 at 1341. Documentation for date of: 05/31/25 Virtual exam Vital Signs Temp Pulse Resp BP Pulse Ox O2 Del Method 97.2 F 69 18 175/103 H 96 Room Air 05/31/25 04:00 05/31/25 06:16 05/31/25 06:16 05/31/25 04:00 05/31/25 04:00 05/31/25 04:00 Objective Labs 05/31/25 04:29 05/31/25 04:29 Labs: Laboratory Results - last 24 hr 05/31/25 04:29 WBC 4.4 RBC 4.94 Hgb 14.5 Hct 45.6 MCV 92 MCH 29.4 MCHC 31.8 RDW Std Deviation 55.0 H Plt Count 187 D Neut % (Auto) 40 Lymph % (Auto) 41 [place] % (Auto) 12 Eos % (Auto) 6 Baso % (Auto) 1 Neut # (Auto) 1.7 L Lymph # (Auto) 1.8 [place] # (Auto) 0.5 Eos # (Auto) 0.3 Baso # (Auto) 0.0 Immature Gran # (Auto) 0.01 H Absolute Nucleated RBC 0.00 Immature Gran % 0 Nucleated RBC % 0 Sodium 144 Potassium 4.2 Chloride 107 Carbon Dioxide 24.6 Anion Gap 12 BUN 9 Creatinine 0.8 Estim Creat Clear Calc 76.8 eGFR > 60 BUN/Creatinine Ratio 11 L Glucose [address] Glu mg/dL 123 Hemoglobin A1c 5.9 Calculated Osmolality 284 Calcium 8.9 Triglycerides 215 H Cholesterol 169 LDL Cholesterol, Calc 84 HDL Cholesterol 42 Cholesterol/HDL Ratio 4.0
[2025-05-31] MEDS: ATORVASTATIN CALCIUM 20 MG TABLET 40 MG PO (20:56)
[2025-06-01] VITALS (20 sets, daily range): BP systolic 119–197; BP diastolic 77–110; PULSE 62–97; RESP 11–94; TEMP 36–37.2; O2SAT 88–97; BMI 26.2
[2025-06-01] MEDS: ACETAMINOPHEN 325 MG TABLET 650 MG PO (00:15)
[2025-06-01] MEDS: SODIUM CHLORIDE 0.9% 1000 ML 1,000 ML 100 ML IV ×2 (00:16→11:54)
[2025-06-01] MEDS: LOSARTAN POTASSIUM 25 MG TABLET 100 MG PO (00:29)
[2025-06-01] MEDS: HEPARIN SOD INJ 5000 UNIT/ML VIAL SC ×3 (05:19→21:38)
[2025-06-01 05:36] LABS: Basophils # (Auto) 0.0 Thou/mm3 (0.0-0.2); Basophils % (Auto) 0 % (0-2.5); Eosinophils # (Auto) 0.2 Thou/mm3 (0.0-0.5); Eosinophils % (Auto) 4 % (0-10); Hematocrit 44.5 % (41.0-53.0); Hemoglobin 14.6 g/dL (13.5-16.0); Immature Granulocytes Auto 0.02 Thou/mm3 (0.00-0.00); Lymphocytes # (Auto) 2.2 Thou/mm3 (1.0-4.8); Lymphocytes % (Auto) 36 % (10-50); Mean Corpuscular HGB Conc 32.8 g/dl (31.0-37.0); Mean Corpuscular Hemoglobin 29.7 pg (25.0-35.0); Mean Corpuscular Volume 91 fL (80-100); Monocytes # (Auto) 0.8 Thou/mm3 (0.0-0.8); Monocytes % (Auto) 13 % (0-12); Neutrophils # (Auto) 2.7 Thou/mm3 (1.8-7.7); Neutrophils % (Auto) 46 % (37-80); Nucleated Red Blood Cell # 0.00 Thou/mm3 (0.00-0.00); Nucleated Red Blood Cell % 0 /100 WBC (0); Platelet Count 207 Thou/mm3 (140-440); RDW Standard Deviation 52.9 fL (35.1-43.9); Red Blood Count 4.91 Miln/mm3 (4.50-5.90); White Blood Count 5.9 Thou/mm3 (3.8-10.6)
[2025-06-01 05:59] LABS: Anion Gap 11 (7-16); BUN/Creatinine Ratio 10 Ratio (12-20); Blood Urea Nitrogen 8 mg/dL (9-23); Calcium 9.2 mg/dL (8.3-10.6); Carbon Dioxide 23.9 mMol/L (20.0-31.0); Chloride 108 mMol/L (98-107); Creatinine (Component) 0.8 mg/dL (0.6-1.3); Estimated Creatinine Clearance 76.8 mL/min (>60); Glucose 87 mg/dL (74-106); Osmolality,Calculated 282 (275-295); Potassium 3.8 mMol/L (3.4-5.1); Sodium 143 mMol/L (136-145); eGFR > 60 See Note
[2025-06-01] MEDS: hydrALAZINE INJ 20 MG/ML VIAL 10 MG IVP (07:47)
[2025-06-01] MEDS: GABAPENTIN 300 MG CAPSULE PO (08:18)
[2025-06-01] MEDS: ASPIRIN EC 81 MG TABEC PO (08:18)
[2025-06-01] MEDS: CLOPIDOGREL BISULFATE 75 MG TABLET PO (08:18)
[2025-06-01] MEDS: DULoxetine HCL 30 MG CAPSULE PO (08:18)
[2025-06-01] MEDS: LOSARTAN POTASSIUM 25 MG TABLET 50 MG PO ×2 (08:18→11:44)
[2025-06-01 08:41] LABS: Magnesium 2.0 mg/dL (1.6-2.6); Phosphorous 2.4 mg/dL (2.4-5.1)
[2025-06-01] MEDS: NITROGLYCERIN 0.4 MG SUBL BTL #25 SL (09:20)
--- NOTE | 2025-06-01 09:22 | PC.SS ---
Addendum entered by DALTON Zelaya 06/01/25 15:36: Rounding note: Patient family would like SNF referral. CINNAMON GRINDER spoke to patient and patient family at bedside to confirm d/c plan. Patient is agreeable to SNF and prefers one close to home. Addendum entered by DALTON Zelaya 06/01/25 09:51: Patient is an 85 year old male presenting to the hospital for CVA. CINNAMON GRINDER placed phone call to patients friend Isha to confirm demographic information. Isha stated she is at bedside. CINNAMON GRINDER met with patients friend at bedside. Isha confirmed patients demographic information and stated that she lives with patient at home at confirmed address. Isha stated that she is patient?s partner and takes him to all his appointments and cares for him. Isha stated that she is the decision maker in case patient is not able to make medical decisions. Isha called Omayra who is patients daughter to confirm medical decision maker. Omayra stated that Isha is medical decision maker and stated that she would call the rest of the family to make sure that is still correct. Omayra stated that for now Isha is the medical decision maker and primary point of contact. Isha stated that patients doctor is Dr. Navas and was seen at the beginning of this month. Isha provided daughter Omayra?s number [phone]. SS will follow up with patient and patients partner at a later time to discuss d/c plan as patient was not alert to take part in discussion. D/c: pending Decision maker: Isha [phone] PCP: Dr. Yosef Cardenas Original Note: CINNAMON GRINDER attempted to call patients grandson to confirm demographic information, no answer, CINNAMON GRINDER left voicemail.
--- NOTE | 2025-06-01 09:31 | EKG_ITS ---
[facility] Test Date: 2025-06-01 Pat Name: JORDY GONSALES [facility] Gender: Male [employer]: CHEN : 1940 Requested By: Teodoro Jaquez Order Number: [id number] Reading MD: Teodoro Jaquez Measurements Intervals [place] Rate: 78 P: [place]: QRS: 136 QRSD: 157 T: 64 QT: 403 QTc: 460 Interpretive Statements ATRIAL FIBRILLATION MARKED RIGHT AXIS DEVIATION RIGHT BUNDLE BRANCH BLOCK ANTEROSEPTAL MYOCARDIAL INFARCTION , PROBABLY RECENT ACUTE ND Compared to ECG 01/20/2025 17:01:15 Right-axis deviation now present Right bundle-branch block now present Sinus rhythm no longer present First degree AV block no longer present Intraventricular conduction delay no longer present Atrial abnormality no longer present Right ventricular hypertrophy no longer present Myocardial infarct finding still present /store/S0/[id number]/ecg/[id number].pdf
--- NOTE | 2025-06-01 09:43 | XR_ITS ---
Examination: CT brain head without contrast. 2-D sagittal coronal reconstructions Date and time of exam: June 01, 2025, 0950 hours INDICATIONS: Stroke alert, onset focal neurologic deficit today COMPARISON: May 30, 2025 CTDI: vol (mGy): 56.4 DLP: (mGycm): 1264 Technique: Multiple CT axial sections of the brain have been obtained, 5 mm slice thickness. Contrast has not been administered. 2-D sagittal, coronal reconstructions have been obtained Low dose protocols were performed. One or more of the following dose reduction techniques were used; automated exposure control, adjustment of the mA and/or KV according to patient size, use of iterative reconstruction technique. Findings: No significant ventricular enlargement. 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 No mass effect or midline shift Basal cisterns are not remarkable. Fourth ventricle is midline. Cranial vault intact. Impression: Negative for acute hemorrhage, mass effect or midline shift
--- NOTE | 2025-06-01 09:56 | XR_ITS ---
Examination: CTA carotids with intravenous contrast CTA brain, head with intravenous contrast. 2-D sagittal, coronal reconstructions. 3-D reconstructions. Exam date and time: June 01, 2025, 10 0 1 a.m. INDICATIONS: Stroke alert, altered mental status beginning 9:15 a.m. this morning CTDI: vol (mGy) 20.4 DLP: (mGycm) 524 Technique: Multiple CTA axial brain, head carotid images post intravenous contrast injection 75 cc, [id number]. 2-D sagittal, coronal reconstructions. 3-D reconstructions, 3-D post processing including vascular maximum intensity projection images. Low dose protocols were performed. One or more of the following dose reduction techniques were used; automated exposure control, adjustment of the mA and/or KV according to patient size, use of iterative reconstruction technique. Findings: No significant common carotid carotid bifurcation or internal carotid artery stenoses Dominant left vertebral artery with no critical vertebral artery stenoses in the neck Intracranial vertebral arteries basilar artery and posterior cerebral branches fill with no large vessel occlusions Petrous juxtasellar supraclinoid internal carotid arteries fill with no large vessel occlusions M1 segments middle cerebral arteries middle cerebral artery trifurcation vessels anterior cerebral arteries fill with no large vessel occlusions IMPRESSION:: No significant neck arterial stenoses No cerebral large vessel arterial occlusions or thrombus
[2025-06-01 10:08] LABS: Troponin I 0.314 ng/mL (0.0-0.045)
--- NOTE | 2025-06-01 10:09 | XR_ITS ---
EXAMINATION: AP chest single view TECHNIQUE: AP portable semiupright chest single view Date and time: June 01, 2025, 10:12 a.m., comparison May 30, 2025 INDICATIONS: New onset chest pain today. FINDINGS: Mild enlargement left ventricle Ectatic enlarged thoracic aorta. Moderate elevation right hemidiaphragm with minor subsegmental atelectasis at the right base. No pneumonia or pulmonary edema Severe osteopenia, partial visualization cervical plate IMPRESSION: No pneumonia or pulmonary edema
--- NOTE | 2025-06-01 10:29 | ESCONSULT_ITS ---
Tele Neuro Consultation Consultation Date 06/01/25 Most Recent Vital Signs Last Vital Signs Temp 96.9 F 06/01/25 04:00 Pulse 72 06/01/25 08:18 Resp 18 06/01/25 06:53 BP 176/95 H 06/01/25 08:18 Pulse Ox 97 06/01/25 04:00 O2 Del Method Room Air 06/01/25 04:00 Laboratory-Coagulation Panel PT 11.1 Seconds (9.0-12.2) 05/30/25 06:50 INR 1.0 (0.9-1.3) 05/30/25 06:50 APTT 25.7 Seconds (22.0-36.0) 05/30/25 06:50 Consultation Narrative [facility] Tele[facility]urology Consult [facility] Patient Name:???Christopher Fisher Date of :???1940 Identification Number:??? Date of Service:???06/01/2025 09:37:38 Diagnosis:?R53.1 - Weakness ?R47.01 - Aphasia ?R47.1 - Dysarthria and anarthria Impression: ?85 yr old man hx of cva in past, HTN, lipids, CAD, admitted 05/30 with chest pain, R weakness, aphasia, and he was improving but ssx had not resolved. This morning at 9:15 am, per RN, his ssx worsened, and he had worsening weakness, lethargy, severe chest pain. and slow speech., ?He has NIH 9 for lethargy, aphasia, dysarthria, R weakness. Leg more than arm. he is on ASA, plavix, per nursing no falls. He continued to have R sided weakness throughout hospital stay, it is worse now. He is getting cardiac work up. ?He had MRI brain which showed old cva, no acute changes, per radiology . He had CTA on admission which showed atherosclerotic changes. ?Diff Dx: r/o acute CVA, encephalopathy, cardiac, other, out of iv thrombolytic window, his R weakness persisted since 05/29/25. Our recommendations are outlined below. Recommendations: ? Stroke/Telemetry Floor ? Neuro Checks (Q4) ? Bedside Swallow Eval ? DVT Prophylaxis ? IV Fluids, Normal Saline ? Head of Bed 30 Degrees ? Euglycemia and Avoid Hyperthermia (PRN Acetaminophen) ?- CTA head neck to r/o LVO ?- if he can swallow, then continue asa, plavix, if he cannot swallow, then do ASA 300 mg DC ?- may need MRI brain repeated given worsening ?- encephalopathy and cardiac work up ?- can maintain permissive HTN, without acute drop, can treat with labetalol PO or IV or Vasotec IV with a goal of 15% reduction in BP during the first 24 hours. ?- Neuro fup ?d/w pt, RN , Rapid team ?d/w YUNG Mansfield and attending Dr Akers all the recs. Sign Out: ? Discussed with Primary Attending ? Discussed with Rapid Response Team Advanced Imaging: Advanced imaging has been ordered. Results pending. Metrics: Last Known Well: Unknown Activation Time: 06/01/2025 09:37:38 Initial Response Time: 06/01/2025 09:38:38Symptoms: lethargy. Initial patient interaction: 06/01/2025 09:49:20 NIHSS Assessment Completed: 06/01/2025 09:54:05Patient is not a candidate for Th rombolytic. Thrombolytic Medical Decision: 06/01/2025 09:54:06Patient was not deemed candidate for Thrombolytic because of following reasons: LKW outside 4.[address] Head: CT head unremarkable for acute infarction or hemorrhage per Radiology: old lacunes, no acute changes, per radiology Primary Provider Notified of Diagnostic Impression and Management Plan on: 10:22:25 Spoke With: Attending Dr Akers, RN Shyla Able to Reach 06/01/2025 10:22:25 History of Present Illness:Patient is a 85 year old Male. Inpatient stroke alert was called for symptoms of lethargy. 85 yr old man hx of cva in past, HTN, lipids, CAD, admitted 05/30 with chest pain, R weakness, aphasia, and he was improving but ssx had not resolved. This morning at 9:15 am, per RN, his ssx worsened, and he had worsening weakness, lethargy, severe chest pain. and slow speech., He has NIH 9 for lethargy, aphasia, dysarthria, R weakness. Leg more than arm. he is on ASA, plavix, per nursing no falls. He continued to have R sided weakness throughout hospital stay, it is worse now. He is getting cardiac work up. He had MRI brain which showed old cva, no acute changes, per radiology . He had CTA on admission which showed atherosclerotic changes. Past Medical History: ?Hypertension ?Hyperlipidemia ?Coronary Artery Disease ?Stroke Medications: No Anticoagulant use? Antiplatelet use:?Yes?asa, plavix Reviewed EMR for current medications Allergies:? Reviewed Social History: Smoking: No Family History: There is no family history of premature cerebrovascular disease pertinent to this consultation ROS : 14 Points Review of Systems was performed and was negative except mentioned in HPI. Past Surgical History: There Is No Surgical History Contributory To Today?s Visit Examination: BP(182/112),?Pulse(84), 1A: Level of Consciousness - Arouses to minor stimulation?+ 1 1B: Ask Month and Age - 1 Question Right?+ 1 1C: Blink Eyes & Squeeze Hands - Performs Both Tasks?+ 0 2: Test Horizontal Extraocular Movements - Normal?+ 0 3: Test Visual [place] - No Visual Loss?+ 0 4: Test Facial Palsy (Use Grimace if Obtunded) - Normal symmetry?+ 0 5A: Test Left Arm Motor Drift - No Drift for 10 Seconds?+ 0 5B: Test Right Arm Motor Drift - Drift, but doesn't hit bed?+ 1 6A: Test Left Leg Motor Drift - No Drift for 5 Seconds?+ 0 6B: Test Right Leg Motor Drift - No Effort Against [place]?+ 3 7: Test Limb Ataxia (FNF/Heel-Suh) - Does Not Understand?+ 0 8: Test Sensation - Normal; No sensory loss?+ 0 9: Test Language/Aphasia - Mild-Moderate Aphasia: Some Obvious Changes, Without Significant Limitation?+ 1 10: Test Dysarthria - Severe Dysarthria: Unintelligble Slurring or Out of Proportion to Aphasia?+ 2 11: Test Extinction/Inattention - No abnormality?+ 0 NIHSS Score:?9 NIHSS Free Text :?gait deferred Pre-Morbid Modified [place] Scale: Unable to assess Spoke with :?Attending Dr Akers, YUNG Mansfield This consult was conducted in real time using interactive audio and video technology. Patient was informed of the technology being used for this visit and agreed to proceed. Patient located in hospital and provider located at home/office setting. Patient is being evaluated for possible acute neurologic impairment and high probability of imminent or life-threatening deterioration. I spent total of 45 minutes providing care to this patient, including time for face to face visit via telemedicine, review of medical records, imaging studies and discussion of findings with providers, the patient and/or family. Dr Aylin Monk [facility] For Inpatient follow-up with [facility] physician please call [facility] at . As we are not an outpatient service for any post hospital discharge needs please contact the hospital for assistance. If you have any questions for the [facility] physicians or need to reconsult for clinical or diagnostic changes please contact us via [facility] at . Non-radiologist review of imaging performed to assist with emergent clinical decision-making. Remote physician workstations do not possess the same resolution, calibration, or diagnostic capabilities as hospital-based radiology reading stations, and formal radiologist read is necessary. Signature :Zenia Monk
--- NOTE | 2025-06-01 10:58 | PD.RESCONSUL ---
HPI Data of Consult Requesting Physician: Kush Casper MD Admitting Provider: Kush Casper MD Attending Provider: Kush Casper MD Primary Care Provider: Yosef Cardenas MD Consult Narrative History of present illness: Mr. Fisher is a 85-year-old male with past medical history of coronary artery disease status post PCI at least 10 stents from [id number], last PCI about 2 months ago at [facility] by Dr. Valentin, peripheral vascular disease status post femorofemoral bypass, distal abdominal aortic aneurysm status post GORE AAA endoprosthesis by Dr. Mazariegos in [place], hypertension, CVA with right hand weakness, hyperlipidemia, osteoarthritis, syncopal episode in the past and COPD/Asthma who presented to [facility] emergency department on May 30, 2025 with a chief complaint of right leg weakness and slurred speech. Stroke alert was initiated in the emergency department, teleneurology was consulted and patient had MRI which showed no acute lacunar infarct. In-house neurology following, patient on DAPT aspirin and Plavix due to recent PCI performed by cardiology is being continued. Patient had a rapid response earlier this morning for severe chest pain, worsening apology and slurred speech. Another stroke alert initiated teleneurology was consulted, CT head and CTA negative, cardiology consulted for management of chest pain. Patient at bedside complained of dull left-sided chest pain radiating to the back and left shoulder, 10/10 in intensity, continuous which improved with sublingual nitroglycerin. EKG reviewed, shows T wave inversion in V1, V2, right bundle branch block. Troponin elevated at 0.314. Patient at bedside currently denies any chest pain, reports significant improvement. Patient has history of extensive CAD, chronic stable angina outpatient, on isosorbide mononitrate which was not resumed for the hospitalization. Review of patient's old troponin values show troponin in similar range likely due to underlying chronic myocardial stress. cc:: cc: Kush Casper MD Review of Systems Review of Systems Narrative Review of Systems: ROS: -CONSTITUTIONAL: Denies weight loss, fever and chills. -HEENT: Denies changes in vision and hearing. -RESPIRATORY: Denies SOB and cough. -CV: Denies palpitations and positive for Chest Pain. -GI: Denies abdominal pain, nausea, vomiting,constipation and diarrhea. -: Denies dysuria and urinary frequency. -MSK: Denies myalgia and joint pain. -SKIN: Denies rash and pruritus. -NEUROLOGICAL: Denies headache and syncope. -PSYCHIATRIC: Denies recent changes in mood. Denies anxiety and depression. Past Medical History Past Medical History Comments PMH COMMENT: Past medical history: coronary artery disease status post PCI at least 10 stents from [id number], last PCI about 2 months ago at [facility] by Dr. Valentin, peripheral vascular disease status post femorofemoral bypass, distal abdominal aortic aneurysm status post GORE AAA endoprosthesis by Dr. Mazariegos in [place], hypertension, CVA with right hand weakness, hyperlipidemia, osteoarthritis, syncopal episode in the past and COPD Past surgical history: Abdominal aneurysm s/p GORE AAA endoprosthesis placement, multiple PCI, PAD status post femorofemoral bypass, eye surgery ear surgery vasectomy, Family history: Significant for hypertension as well as heart disease Social history: Patient denies any Smoking alcohol or drug abuse. Patient works here in [place] and owns couple of shop selling glass.3 kids with large extended family. Allergies: NKDA Exam Vital Signs Temp Pulse Resp BP Pulse Ox O2 Del Method 96.9 F 72 18 176/95 H 97 Room Air 06/01/25 04:00 06/01/25 08:18 06/01/25 06:53 06/01/25 08:18 06/01/25 04:00 06/01/25 04:00 Narrative Exam Physical Exam General: Awake and in no acute distress. Conversational and non-toxic appearing. HEENT: Normocephalic, atraumatic, mucous membranes moist. Heart: Regular rate and rhythm, no murmurs. Lungs: Clear to auscultation with no wheezing or crackles. Abdomen: Soft, nondistended, nontender, positive bowel sounds. ?No guarding or rebound tenderness. Neurologic: Alert and oriented x3, no gross neurological deficit, and patient able to move all 4 extremities. Extremities: No edema. Skin: No rash or ecchymoses. Results Labs 06/02/25 04:29 06/02/25 04:29 Labs: Short CBC 06/01/25 Range/Units 04:20 WBC 5.9 (3.8-10.6) Thou/mm3 Hgb 14.6 (13.5-16.0) g/dL Hct 44.5 (41.0-53.0) % Plt Count 207 (140-440) Thou/mm3 [facility] 06/01/25 04:20 Sodium 143 Potassium 3.8 Chloride 108 H Carbon Dioxide 23.9 BUN 8 L Creatinine 0.8 Glucose 87 Calcium 9.2 Cardiac Enzymes 06/01/25 Range/Units 09:39 Troponin I 0.314 H* (0.0-0.045) ng/mL Quality Measures Quality Measures stroke Suspected type of Stroke: Non Acute Last known well (date): 05/29/25 Last known well (time): 20:00 Tenecteplase given: Reason(s) Tenecteplase not given: Outside the time window not given Rehab services: PT evaluation ordered and Speech Language Pathology eval ordered VTE Prophylaxis: refused Antithrombotic by day 2:: not indicated (describe) Statin ordered: n/a Anticoagulation ordered for A-fib or flutter (current or hx): refused Advance care planning discussed with:: patient and spouse Medications Home Medications and Allergies Home Medications ?Medication ?Instructions ?Recorded ?Confirmed ?Type aspirin 81 mg tablet,delayed 81 mg PO DAILY 09/17/21 05/30/25 History release duloxetine 30 mg capsule,delayed 30 mg PO BID 12/02/23 05/30/25 History release (Cymbalta) clopidogrel 75 mg tablet 75 mg PO DAILY 05/30/25 05/30/25 History fluticasone fur. 100 mcg-umeclid 1 inh inhalation Q24H 05/30/25 05/30/25 History 62.5 mcg-vilant 25 mcg inhalat.powder (Trelegy Ellipta) rosuvastatin 40 mg tablet 40 mg PO HS 05/30/25 05/30/25 History Allergies Allergy/AdvReac Type Severity Reaction Status Date / Time No Known Allergies Allergy Verified 01/20/25 16:40 Visit Medications Acetaminophen (Acetaminophen 325 Mg Tablet) 650 mg PO Q6HR PRN PRN Reason: Temp>100.4 or mild pain 1-3 Stop: 06/30/25 23:23 Last Admin: 06/01/25 00:15 Dose: 650 mg Albuterol/Ipratropium (Albuterol/Ipratropium (Duoneb) Rt Haley 3 Ml Nebu) 3 ml INH Q6HRRT PRN PRN Reason: SHORTNESS OF BREATH OR WHEEZE Stop: 06/29/25 16:03 Aspirin (Aspirin Ec 81 Mg Tabec) 81 mg PO QDAY [facility] Stop: 06/30/25 08:59 Last Admin: 06/01/25 08:18 Dose: 81 mg Atorvastatin Calcium (Atorvastatin Calcium 20 Mg Tablet) 40 mg PO HS [facility] Stop: 06/29/25 20:59 Last Admin: 05/31/25 20:56 Dose: 40 mg Clopidogrel Bisulfate (Clopidogrel Bisulfate 75 Mg Tablet) 75 mg PO QDAY [facility] Stop: 06/29/25 16:14 Last Admin: 06/01/25 08:18 Dose: 75 mg Duloxetine HCl (Duloxetine Hcl 30 Mg Capsule) 30 mg PO QDAY [facility] Stop: 06/30/25 08:59 Last Admin: 06/01/25 08:18 Dose: 30 mg Gabapentin (Gabapentin 300 Mg Capsule) 300 mg PO QDAY [facility] Stop: 06/30/25 08:59 Last Admin: 06/01/25 08:18 Dose: 300 mg Heparin Sodium (Porcine) (Heparin Sod Inj 5000 Unit/Ml Vial) 5,000 unit SC Q8HR KRISTEN Stop: 06/13/25 13:59 Last Admin: 06/01/25 05:19 Dose: 5,000 unit Sodium Chloride (Ns) 1,000 mls @ 100 mls/hr IV Q10H [facility] Stop: 06/29/25 06:29 Last Admin: 06/01/25 00:16 Dose: 100 mls/hr Isosorbide Dinitrate (Isosorbide Dinitrate 10 Mg Tablet) 20 mg PO BID [facility] Stop: 07/01/25 09:59 Losartan Potassium (Losartan Potassium 25 Mg Tablet) 100 mg PO QDAY [facility] Stop: 07/02/25 08:59 Ondansetron HCl (Ondansetron Inj 2 Mg/Ml Inj 2 Ml) 4 mg IVP Q4HR PRN PRN Reason: NAUSEA OR VOMITING Stop: 06/29/25 09:33 Discontinued Medications Acetaminophen (Acetaminophen 325 Mg Tablet) 650 mg PO Q6HR PRN PRN Reason: Fever > 100.4 or pain Stop: 06/30/25 22:40 Aspirin (Aspirin 300 Mg Supp) 300 mg DE X1 ONE Stop: 05/30/25 06:50 Last Admin: 05/30/25 07:02 Dose: 300 mg Aspirin (Aspirin 300 Mg Supp) 300 mg DE DAILY [facility] Stop: 06/30/25 08:59 Carvedilol (Carvedilol 3.125 Mg Tablet) 3.125 mg PO BIDWM KRISTEN Stop: 07/01/25 17:29 Carvedilol (Carvedilol 3.125 Mg Tablet) 3.125 mg PO BIDWM STA Stop: 06/01/25 09:51 Gabapentin (Gabapentin 100 Mg Capsule) 300 mg PO X1 ONE Stop: 05/30/25 21:16 Last Admin: 05/30/25 21:39 Dose: 300 mg Glucagon (Glucagon Inj 1 Mg Vial) 1 mg IM Q15MIN PRN PRN Reason: BG <70, and no IV access Hydralazine HCl (Hydralazine Inj 20 Mg/Ml Vial) 10 mg IVP X1 ONE Stop: 06/01/25 07:24 Last Admin: 06/01/25 07:47 Dose: 10 mg Insulin Human Lispro (Insulin Lispro (Admelog) 1 Unit/0.01 Ml Unit) 0 unit SC Q6HR [facility]; Protocol Stop: 06/29/25 17:59 Last Admin: 05/30/25 17:53 Dose: Not Given Labetalol HCl (Labetalol Inj 5 Mg/Ml Vial 4 Ml) 10 mg IVP Q15M PRN PRN Reason: hypertension Last Admin: 05/31/25 00:01 Dose: 10 mg Losartan Potassium (Losartan Potassium 25 Mg Tablet) 100 mg PO X1 ONE Stop: 06/01/25 00:28 Last Admin: 06/01/25 00:29 Dose: 100 mg Losartan Potassium (Losartan Potassium 25 Mg Tablet) 50 mg PO QDAY [facility] Stop: 07/01/25 08:59 Last Admin: 06/01/25 08:18 Dose: 50 mg Meclizine HCl (Meclizine Hcl 25 Mg Tablet) 25 mg PO X1 ONE Stop: 05/30/25 15:55 Last Admin: 05/30/25 16:10 Dose: 25 mg Morphine Sulfate (Morphine Sulf Inj 4 Mg/Ml Vial) 2 mg IVP X1 ONE Stop: 05/30/25 06:56 Last Admin: 05/30/25 07:02 Dose: 2 mg Nitroglycerin (Nitroglycerin 0.4 Mg Subl Btl #25) 0.4 mg SL X1 ONE Stop: 06/01/25 09:36 Ondansetron HCl (Ondansetron Inj 2 Mg/Ml Inj 2 Ml) 4 mg IVP X1 ONE; Protocol Stop: 05/30/25 06:56 Last Admin: 05/30/25 07:02 Dose: 4 mg Assessment & Plan Plan Assessment and plan: Summary: Mr. Fisher is a 85-year-old male with past medical history of coronary artery disease status post PCI at least 10 stents from 2699-3417, last PCI about 2 months ago at [facility] by Dr. Valentin, peripheral vascular disease status post femorofemoral bypass, distal abdominal aortic aneurysm status post GORE AAA endoprosthesis by Dr. Mazariegos in [place], hypertension, CVA with right hand weakness, hyperlipidemia, osteoarthritis, syncopal episode in the past and COPD/Asthma who presented to [facility] emergency department on May 30, 2025 with a chief complaint of right leg weakness and slurred speech. Stroke alert was initiated in the emergency department, teleneurology was consulted and patient had MRI which showed no acute lacunar infarct. In-house neurology following, patient on DAPT aspirin and Plavix due to recent PCI performed by cardiology is being continued. Cardiology consulted for management of chest pain. #Chronic stable angina #Cardiac chest pain #Elevated troponin #CAD s/p PCI with at least 10 stents from 2009- 2024, last cath on 12/04/2023 (12/04/2023 which showed moderate CAD with 50% in-stent restenosis of ostial and proximal LCx, 50% stenosis of ostial, proximal ramus. There is mild in-stent restenosis of 30 to 40% in the proximal to mid LAD stents, mild diffuse disease of the RCA with mild in-stent restenosis of the RPDA stent.) Patient has history of extensive CAD and PAD, patient has at least 10 stents placed from 2009?2024. Reports that underwent PCI with 2 stents placed as he had 80% blockage in unknown vessel at [facility] by Dr. Valentin. at bedside reports compliance with DAPT. Had a rapid response earlier today with chest pain complained of dull left-sided chest pain radiating to the back and left shoulder, 10/10 in intensity, continuous which improved with sublingual nitroglycerin. EKG reviewed, shows T wave inversion in V1, V2, right bundle branch block. Troponin elevated at 0.314. Review of patient's old troponin values show troponin in similar range likely due to underlying chronic myocardial stress. Patient has history of extensive CAD, unstable angina outpatient, on isosorbide mononitrate which was not resumed for the hospitalization. Echocardiogram 05/30/2025 shows 1. Left ventricle size is normal and systolic function is mildly reduced. Estimated ejection fraction is 45-50%. There is grade I diastolic dysfunction. 2. Right ventricle chamber size is normal and systolic function is normal. Estimated RVSP is 47 mmHg with RAP 3. 3. There is mild aortic valve sclerosis with no stenosis and no regurgitation. 4. There is mild mitral and tricuspid valve regurgitation. 5. Normal IVC with estimated RA pressure 3 mmHg. Cardiac catheterization 12/04/2023 summary/findings: 1. LHC showed moderate CAD with 50% in-stent restenosis of ostial and proximal LCx, 50% stenosis of ostial, proximal ramus. There is mild in-stent restenosis of 30 to 40% in the proximal to mid LAD stents, mild diffuse disease of the RCA with mild in-stent restenosis of the RPDA stent. 2. A total of 8 stents as per patient-all of them appear to be patent with mild to moderate in-stent restenosis-at least 3 in the LAD 3 in the LCx 1 in the ramus as well as 1 in the RPDA. 3. LVEF appears to be normal at 50 to 55% with normal LVEDP around 8 mmHg and no significant transvalvular gradient. Recommendations: ? Continue aspirin and Plavix ? Patient's blood pressure noted to be significantly elevated, Antianginal therapy with Coreg 3.125 mg p.o. twice daily, amlodipine 2.5 mg at bedtime: Increase dosage as blood pressure tolerates. ? Started on ranolazine 500 mg p.o. twice daily. ? Discontinue home isosorbide, will manage angina with Ranexa, beta-angelica and calcium channel angelica. ? Continue to monitor for chest pain ? No need to trend troponin, repeat if patient has active chest pain, repeat EKG as needed. #Chronic congestive heart failure with mildly reduced ejection fraction, EF 45-50% #Chronic systolic and diastolic heart failure Patient does have component of ischemic cardiomyopathy due to severe coronary artery disease. Mildly reduced ejection fraction noticed on echo. Currently asymptomatic, no lower extremity edema noted, no signs of fluid overload. Echocardiogram 05/30/2025 shows 1. Left ventricle size is normal and systolic function is mildly reduced. Estimated ejection fraction is 45-50%. There is grade I diastolic dysfunction. 2. Right ventricle chamber size is normal and systolic function is normal. Estimated RVSP is 47 mmHg with RAP 3. 3. There is mild aortic valve sclerosis with no stenosis and no regurgitation. 4. There is mild mitral and tricuspid valve regurgitation. 5. Normal IVC with estimated RA pressure 3 mmHg. Recommendations: - Patient on GDMT with losartan 50 mg, Coreg 3.125 mg, Jardiance 10 mg. Currently resumed on Coreg, will consider adding NIDIA/ARB/ARNI in a.m. - Strict intake and output, fluid restriction 1800 cc, daily weights, low-sodium cardiac diet. #Peripheral arterial disease status post femorofemoral bypass #Distal abdominal aortic aneurysm status post [place] AAA endoprosthesis Patient is established with vascular surgery outpatient, continue aspirin and Plavix. #Hypertension #Hypertensive urgency Blood pressure during episode of chest pain noted to be systolic in 190s, uncontrolled blood pressure. On home patient on losartan 50 mg daily, isosorbide mononitrate 30 mg, Coreg 3.125 twice daily - Currently on Coreg 3.125 twice daily and started on amlodipine 2.5 mg at bedtime; will uptitrate as tolerated as antianginal - Will consider adding NIDIA/ARB/ARNI due to mildly reduced EF in a.m. #Hyperlipidemia Continue atorvastatin 40 mg at bedtime #CVA workup #CVA with right sided deficits by history #chronic pain Management as per primary team Thank you for the consult and allowing to participate in the care of the patient. Cardiology will continue to follow. Case discussed with Attending Physician Dr. Rl Sosa MD Internal Medicine PGY-2 Disclaimer: This note was dictated by speech recognition. Minor errors in medical management specialist may be present due to voice recognition software. Attending Provider Attestation/Addendum I have personally seen and examined the patient separately on the above date of service and discussed the plan of care with the resident. I reviewed the resident Dr. Mamadou Sosa consultation progress note and agree with the resident findings and plan in the note above and have also edited the documentation to reflect my findings and plan. Rl Herrear M.D. Interventional Cardiology
[2025-06-01] MEDS: ISOSORBIDE DINITRATE 10 MG TABLET 20 MG PO (11:18)
--- NOTE | 2025-06-01 12:17 | XR_ITS ---
Examination: Abdomen AP single view Technique: AP portable supine abdomen, single view Exam date and time: June 01, 2025, 1233 hours INDICATIONS: History aortoiliac endoluminal stent FINDINGS: Minimal small bowel ileus, mild small bowel air distended loops in the right abdomen Mild air and stool throughout the colon Contrast in the bladder Aortoiliac endoluminal stent No free air IMPRESSION: Mild small bowel ileus
--- NOTE | 2025-06-01 13:17 | PD.RESPRO ---
Documentation for date of: 06/01/25 Subjective Subjective Interval history: Patient seen and examined at bedside; no acute events overnight. Patient had rapid response called for worsening weakness, L sided chest pain, and slurred speech at 9:33 AM. See event note for more details. Afterwards, patient returned to previous normal state; speaking as before. Exam Vital Signs Temp Pulse Resp BP Pulse Ox O2 Del Method O2 Flow Rate 98.1 F 90 18 119/80 96 Nasal Cannula 3 06/01/25 12:00 06/01/25 12:06/01/25 12:06/01/25 12:06/01/25 12:06/01/25 12:06/01/25 12:00 Narrative Exam General: Alert and oriented x3. In no acute distress. Eyes: Pupils are equal and reactive to light bilaterally. HEENT: Atraumatic, normocephalic. No JVD noted. Cardiovascular: Normal S1 and S2. Normal rate and regular rhythm. No murmurs appreciated. No peripheral pitting edema noted. No JVD noted. Respiratory: No respiratory distress. Lungs are clear to auscultation bilaterally. No wheezing or crackles heard. Abdomen: Soft, nontender, nondistended. Skin: No rash. Musculoskeletal: No gross injuries. Able to move all 4 extremities. Neuro: Alert and oriented x3. Sensation is intact throughout. Speech is slowed. Strength is 5/5 in all extremities except RLE, which was 4/5. Psych: Normal affect and mood. Objective Labs 06/02/25 04:29 06/02/25 04:29 Labs: Laboratory Results - last 24 hr 06/01/25 06/01/25 04:20 09:39 WBC 5.9 RBC 4.91 Hgb 14.6 Hct 44.5 MCV 91 MCH 29.7 MCHC 32.8 RDW Std Deviation 52.9 H Plt Count 207 Neut % (Auto) 46 Lymph % (Auto) 36 [place] % (Auto) 13 H Eos % (Auto) 4 Baso % (Auto) 0 Neut # (Auto) 2.7 Lymph # (Auto) 2.2 [place] # (Auto) 0.8 Eos # (Auto) 0.2 Baso # (Auto) 0.0 Immature Gran # (Auto) 0.02 H Absolute Nucleated RBC 0.00 Immature Gran % 0 Nucleated RBC % 0 Sodium 143 Potassium 3.8 Chloride 108 H Carbon Dioxide 23.9 Anion Gap 11 BUN 8 L Creatinine 0.8 Estim Creat Clear Calc 76.8 eGFR > 60 BUN/Creatinine Ratio 10 L Glucose 87 Calculated Osmolality 282 Calcium 9.2 Phosphorus 2.4 Magnesium 2.0 Troponin I 0.314 H* Quality Measures Quality Measures stroke Suspected type of Stroke: Non Acute Last known well (date): 05/29/25 Last known well (time): 20:00 Tenecteplase given: Reason(s) Tenecteplase not given: Outside the time window not given Rehab services: Speech Language Pathology eval ordered VTE Prophylaxis: pharmaceutical Antithrombotic by day 2:: ordered Statin ordered: >75 y/o moderate or high intensity dose Anticoagulation ordered for A-fib or flutter (current or hx): ordered Advance care planning discussed with:: other Assessment & Plan Assessment Current Active Medications: Generic Name Dose Route Start Last Admin Trade Name Freq PRN Reason Stop Dose Admin Acetaminophen 650 mg 05/31/25 23:24 06/01/25 00:15 Acetaminophen 325 Mg Tablet PO 06/30/25 23:23 650 mg Q6HR PRN Administration Temp>100.4 or mild pain 1-3 Albuterol/Ipratropium 3 ml 05/30/25 16:04 Albuterol/Ipratropium (Duoneb) Rt Haley 3 Ml Nebu INH 06/29/25 16:03 Q6HRRT PRN SHORTNESS OF BREATH OR WHEEZE Amlodipine Besylate 2.5 mg 06/01/25 21:00 Amlodipine Besylate 2.5 Mg Tablet PO 07/01/25 20:59 HS KRISTEN Aspirin 81 mg 05/31/25 09:00 06/01/25 08:18 Aspirin Ec 81 Mg Tabec PO 06/30/25 08:59 81 mg QDAY KRISTEN Administration Atorvastatin Calcium 40 mg 05/30/25 21:00 05/31/25 20:56 Atorvastatin Calcium 20 Mg Tablet PO 06/29/25 20:59 40 mg HS KRISTEN Administration Carvedilol 3.125 mg 06/01/25 17:30 Carvedilol 3.125 Mg Tablet PO 07/01/25 17:29 BIDWM KRISTEN Clopidogrel Bisulfate 75 mg 05/30/25 16:15 06/01/25 08:18 Clopidogrel Bisulfate 75 Mg Tablet PO 06/29/25 16:14 75 mg QDAY KRISTEN Administration Duloxetine HCl 30 mg 05/31/25 09:00 06/01/25 08:18 Duloxetine Hcl 30 Mg Capsule PO 06/30/25 08:59 30 mg QDAY KRISTEN Administration Gabapentin 300 mg 05/31/25 09:00 06/01/25 08:18 Gabapentin 300 Mg Capsule PO 06/30/25 08:59 300 mg QDAY KRISTEN Administration Heparin Sodium (Porcine) 5,000 unit 05/30/25 14:00 06/01/25 05:19 Heparin Sod Inj 5000 Unit/Ml Vial SC 06/13/25 13:59 5,000 unit Q8HR KRISTEN Administration Sodium Chloride 1,000 mls @ 100 mls/hr 05/30/25 06:30 06/01/25 11:54 Ns IV 06/29/25 06:29 100 mls/hr Q10H KRISTEN Administration Ondansetron HCl 4 mg 05/30/25 09:34 Ondansetron Inj 2 Mg/Ml Inj 2 Ml IVP 06/29/25 09:33 Q4HR PRN NAUSEA OR VOMITING Ranolazine 500 mg 06/01/25 12:15 Ranolazine 500 Mg Sabrina (Non Formulary) PO 07/01/25 12:14 BID KRISTEN Plan Patient is a 85-year-old male with PMH of CVA, CAD post stent, and hypertension, presenting with a chief complaint of hypophonia, apraxia, and right leg weakness. He was found to have 9 mm posterior thalamus infarct. #Acute CVA, posterior thalamus #?TIA vs [place] on 06-01-25 #History of CVA #HfPEF Risk factors includes age, hypertension, vascular disease, type 2 diabetes, and prior history of CVA. CT head negative for acute changes; MRI showed 9 mm posterior thalamus infarct Echo showed EF 45-50% 06-01-25- New-onset chest pain radiating to L shoulder, slurred speech, and loss of strength in RLE. Patient had had normal speech, no chest pain, and 4/5 RLE strength (from 3/5 at baseline) on previous exam in AM. Troponin was 0.314, which was elevated from 0.208 on admission, though it must be noted that patient has persistent troponin leak of at least 0.15 since 11/03/21. EKG shows no ST segment elevations, while CT head showed no acute hemorrhage, mass effect or midline shift. Tele-neuro recommended CTA head/neck, which showed no significant neck arterial stenoses or cerebral large vessel arterial occlusions or thrombus. Plan: Continue aspirin Continue atorvastatin Plavix 75 mg daily Q4H neurochecks PT OT evaluation Neurology consulted Cardiology consulted- added ranolazine 500mg BID, amlodipine 2.5 BID, coreg 3.125 BID #Essential hypertension Allowed permissive hypertension in the first 24 hours in the setting of acute CVA BP today 146/86 in PM Plan: IV labetalol for BP less than 220/120 See above cardiology recommendations #Type 2 diabetes mellitus Started sliding scale insulin. Monitor fingersticks #Chronic pain Continue gabapentin and duloxetine Disposition: Tele DVT prophylaxis: Heparin 5000 subq Q8H GI prophylaxis: Diet: Cardiac Lines: PIV CODE STATUS: Full This case was discussed with my attending physician, Dr. Villa, and senior resident, Dr. Martinez. Teodoro Jaquez, PGY1 Senior Resident Attestation: I discussed with and supervised the internal combustion engine subassembler physician involved in the care of this patient. I personally saw and examined the patient and discussed the assessment and plan with the entire medicine team, including my attending. I agree with the assessment and plan as documented above. Boogie Martinez MD PGY3 Internal Medicine Attending Provider Attestation/Addendum Patient complained of chest pain. PAPER MACHINE BACKTENDER called. The patient received nitroglycerin. Cardiology agreed service has seen him. They plan to start ranolazine and amlodipine. I also talked with teleneurologist on-call Dr. Monk following stroke alert. Patient is not a tPA candidate. His is at bedside at bedside and I updated her. We discussed the patient's medications. Plan is to continue antiplatelet agent rectally if needed. CT angio head and neck with contrast pending. I discussed with and supervised the resident physician who took care of this patient. I agree with the assessment and plan as above.
--- NOTE | 2025-06-01 13:17 | PD.RESEVENT ---
Documentation for date of: 06/01/25 Event Note Event Note: At 9:33 AM, rapid response was called for patient due to new-onset chest pain radiating to L shoulder, slurred speech, and loss of strength in RLE. Patient had had normal speech, no chest pain, and 4/5 RLE strength (from 3/5 at baseline) on previous exam in AM. Troponin, EKG, and CT head ordered. Troponin was 0.314, which was elevated from 0.208 on admission, though it must be noted that patient has persistent troponin leak of at least 0.15 since 11/03/21. EKG shows no ST segment elevations, while CT head showed no acute hemorrhage, mass effect or midline shift. Tele-neuro was consulted who recommended CTA head/neck, which showed No significant neck arterial stenoses or cerebral large vessel arterial occlusions or thrombus. CXR showed no pneumonia or pulmonary edema. Cardiology consulted. This case was discussed with my attending physician, Dr. Villa, and senior resident, Dr. Martinez. Teodoro Jaquez, PGY1
[2025-06-01] MEDS: RANOLAZINE 500 MG TABER (NON FORMULARY) PO ×2 (13:23→21:37)
[2025-06-01] MEDS: ATORVASTATIN CALCIUM 20 MG TABLET 40 MG PO (21:37)
--- NOTE | 2025-06-01 23:55 | PD.NEUROPROG ---
Documentation for date of: 06/01/25 Subjective Subjective Interval history: Patient was seen in ICU today, no recurrence of similar symptoms or worsening reported after admission. He is able to communicate better and move his right LE well. No complaints today. Exam - Neurology Vital Signs Temp Pulse Resp BP Pulse Ox O2 Del Method O2 Flow Rate 98.2 F 82 18 145/82 H 97 Room Air 3 06/01/25 20:00 06/01/25 21:37 06/01/25 20:00 06/01/25 21:37 06/01/25 20:00 06/01/25 20:00 06/01/25 12:00 Narrative Exam GENERAL APPEARANCE: Well hydrated, well-nourished in no acute distress. HEENT: Normocephalic, atraumatic, extraocular movements intact. Pupils: Equal reacting to light and accommodation, tympanic membranes are bilaterally intact. There is no bulge or retraction. Throat without erythema or exudate. Moist oral mucosa. NECK: Supple, no JVD or bruits. CARDIOVASULAR: Heart: S1, S2 heard, regular without S3-S4 or murmur no rubs or gallops. LUNGS/CHEST: Clear to auscultation bilaterally. No rails, rhonchi, or wheezing. Normal inspection. ABDOMEN: Soft, nontender, with normal bowel sounds. No pulsatile masses. No rebound, rigidity, or guarding. Normal inspection and palpation. EXTREMITIES: Normal inspection and palpation. No edema, clubbing or cyanosis. SKIN: Warm and dry without rashes. Normal inspection. MUSCULOSKELETAL: No cervical, thoracic, lumbar or midline bony tenderness. Normal inspection. NEURO: Alert, awake and oriented x3. Cranial nerves: II through XII grossly intact. Speech and language: Improving but not back to normal yet. Motor system: Tone and bulk: Normal: Strength: Right upper and lower extremities strength 3/5, wrist 5/5. no signs of meningeal irritation noted. PSYCHIATRIC: Normal mood and affect. Objective Labs 06/02/25 04:29 06/01/25 04:20 Labs: Laboratory Results - last 24 hr 06/01/25 06/01/25 04:20 09:39 WBC 5.9 RBC 4.91 Hgb 14.6 Hct 44.5 MCV 91 MCH 29.7 MCHC 32.8 RDW Std Deviation 52.9 H Plt Count 207 Neut % (Auto) 46 Lymph % (Auto) 36 [place] % (Auto) 13 H Eos % (Auto) 4 Baso % (Auto) 0 Neut # (Auto) 2.7 Lymph # (Auto) 2.2 [place] # (Auto) 0.8 Eos # (Auto) 0.2 Baso # (Auto) 0.0 Immature Gran # (Auto) 0.02 H Absolute Nucleated RBC 0.00 Immature Gran % 0 Nucleated RBC % 0 Sodium 143 Potassium 3.8 Chloride 108 H Carbon Dioxide 23.9 Anion Gap 11 BUN 8 L Creatinine 0.8 Estim Creat Clear Calc 76.8 eGFR > 60 BUN/Creatinine Ratio 10 L Glucose 87 Calculated Osmolality 282 Calcium 9.2 Phosphorus 2.4 Magnesium 2.0 Troponin I 0.314 H* Assessment & Plan Assessment and plan (1) Cerebrovascular accident: Status: Acute Assessment and plan: MRI brain ruled out acute infarction. It showed only chronic white matter changes with old infarcts. Continue with aspirin and Brilinta and statin (2) Coronary artery disease: Status: Chronic Assessment and plan: Status post with stenting and angioplasty (3) Peripheral vascular disease: Status: Chronic (4) Hypertension: Status: Chronic Assessment and plan: needs aggressive blood pressure control
[2025-06-02] VITALS (8 sets, daily range): BP systolic 140–166; BP diastolic 85–100; PULSE 59–86; RESP 15–95; TEMP 36.3–37; O2SAT 93–97; BMI 25.2
[2025-06-02] MEDS: ACETAMINOPHEN 325 MG TABLET 650 MG PO (03:19)
[2025-06-02] MEDS: HEPARIN SOD INJ 5000 UNIT/ML VIAL SC (05:27)
[2025-06-02 06:03] LABS: Basophils # (Auto) 0.0 Thou/mm3 (0.0-0.2); Basophils % (Auto) 1 % (0-2.5); Eosinophils # (Auto) 0.2 Thou/mm3 (0.0-0.5); Eosinophils % (Auto) 2 % (0-10); Hematocrit 45.2 % (41.0-53.0); Hemoglobin 14.6 g/dL (13.5-16.0); Immature Granulocytes Auto 0.01 Thou/mm3 (0.00-0.00); Lymphocytes # (Auto) 1.7 Thou/mm3 (1.0-4.8); Lymphocytes % (Auto) 26 % (10-50); Mean Corpuscular HGB Conc 32.3 g/dl (31.0-37.0); Mean Corpuscular Hemoglobin 29.1 pg (25.0-35.0); Mean Corpuscular Volume 90 fL (80-100); Monocytes # (Auto) 0.8 Thou/mm3 (0.0-0.8); Monocytes % (Auto) 13 % (0-12); Neutrophils # (Auto) 3.9 Thou/mm3 (1.8-7.7); Neutrophils % (Auto) 59 % (37-80); Nucleated Red Blood Cell # 0.00 Thou/mm3 (0.00-0.00); Nucleated Red Blood Cell % 0 /100 WBC (0); Platelet Count 211 Thou/mm3 (140-440); RDW Standard Deviation 52.0 fL (35.1-43.9); Red Blood Count 5.01 Miln/mm3 (4.50-5.90); White Blood Count 6.6 Thou/mm3 (3.8-10.6)
[2025-06-02 06:42] LABS: Alanine Aminotransferase 27 U/L (10-49); Albumin, Serum 3.8 gm/dL (3.4-4.8); Albumin/Globulin Ratio 1.3 (1.2-2.2); Alkaline Phosphatase 61 U/L (46-116); Anion Gap 13 (7-16); Aspartate Amino Transferase 33 U/L (0-34); BUN/Creatinine Ratio 14 Ratio (12-20); Bilirubin,Total 0.8 mg/dL (0.3-1.2); Blood Urea Nitrogen 11 mg/dL (9-23); Calcium 9.6 mg/dL (8.3-10.6); Calcium (Corrected) 9.8 mg/dL (8.5-10.1); Carbon Dioxide 23.1 mMol/L (20.0-31.0); Chloride 106 mMol/L (98-107); Creatinine (Component) 0.8 mg/dL (0.6-1.3); Estimated Creatinine Clearance 76.8 mL/min (>60); Globulin 2.9 gm/dL (2.3-3.5); Glucose 89 mg/dL (74-106); Magnesium 1.9 mg/dL (1.6-2.6); Osmolality,Calculated 281 (275-295); Phosphorous 2.2 mg/dL (2.4-5.1); Potassium 3.6 mMol/L (3.4-5.1); Sodium 142 mMol/L (136-145); Total Protein 6.7 gm/dL (5.7-8.2); eGFR > 60 See Note
--- NOTE | 2025-06-02 08:00 | PD.RESPRO ---
Documentation for date of: 06/02/25 Subjective Subjective Interval history: Patient seen and examined at bedside, denies chest pain since yesterday. Was started on Losartan by primrary team, will continue. Uptitrate amlodipine to 5mg every night and Coreg to 6.25 mg twice a day. Patient requesting to go home today, instructed to follow up in 1 week in clinic to recheck BP outpatient. Planning to discharge on current regimen, continue ranolazine. Discharge on DAPT. Exam Vital Signs Temp Pulse Resp BP Pulse Ox O2 Del Method O2 Flow Rate 98.2 F 69 20 166/91 H 97 Room Air 3 06/02/25 04:00 06/02/25 04:00 06/02/25 04:00 06/02/25 04:00 06/02/25 04:00 06/02/25 04:00 06/01/25 12:00 Narrative Exam Physical Exam General: Awake and in no acute distress. Conversational and non-toxic appearing. HEENT: Normocephalic, atraumatic, mucous membranes moist. Heart: Regular rate and rhythm, no murmurs. Lungs: Clear to auscultation with no wheezing or crackles. Abdomen: Soft, nondistended, nontender, positive bowel sounds. ?No guarding or rebound tenderness. Neurologic: Alert and oriented x3, no gross neurological deficit, and patient able to move all 4 extremities. Extremities: No edema. Skin: No rash or ecchymoses. Objective Labs 06/02/25 04:29 06/02/25 04:29 Labs: Laboratory Results - last 24 hr 06/01/25 06/01/25 06/02/25 04:20 09:39 04:29 WBC 6.6 RBC 5.01 Hgb 14.6 Hct 45.2 MCV 90 MCH 29.1 MCHC 32.3 RDW Std Deviation 52.0 H Plt Count 211 Neut % (Auto) 59 Lymph % (Auto) 26 [place] % (Auto) 13 H Eos % (Auto) 2 Baso % (Auto) 1 Neut # (Auto) 3.9 Lymph # (Auto) 1.7 [place] # (Auto) 0.8 Eos # (Auto) 0.2 Baso # (Auto) 0.0 Immature Gran # (Auto) 0.01 H Absolute Nucleated RBC 0.00 Immature Gran % 0 Nucleated RBC % 0 Sodium 142 Potassium 3.6 Chloride 106 Carbon Dioxide 23.1 Anion Gap 13 BUN 11 Creatinine 0.8 Estim Creat Clear Calc 76.8 eGFR > 60 BUN/Creatinine Ratio 14 Glucose 89 Calculated Osmolality 281 Calcium 9.6 Corrected Calcium 9.8 Phosphorus 2.4 2.2 L Magnesium 2.0 1.9 Total Bilirubin 0.8 AST 33 ALT 27 Alkaline Phosphatase 61 Troponin I 0.314 H* Total Protein 6.7 Albumin 3.8 Globulin 2.9 Albumin/Globulin Ratio 1.3 Quality Measures Quality Measures stroke Suspected type of Stroke: Non Acute Last known well (date): 05/29/25 Last known well (time): 20:00 Tenecteplase given: Reason(s) Tenecteplase not given: Outside the time window not given Rehab services: PT evaluation ordered and Speech Language Pathology eval ordered VTE Prophylaxis: pharmaceutical and refused Antithrombotic by day 2:: ordered Statin ordered: >75 y/o moderate or high intensity dose Anticoagulation ordered for A-fib or flutter (current or hx): not indicated Advance care planning discussed with:: patient Assessment & Plan Assessment Current Active Medications: Generic Name Dose Route Start Last Admin Trade Name Freq PRN Reason Stop Dose Admin Acetaminophen 650 mg 05/31/25 23:24 06/02/25 03:19 Acetaminophen 325 Mg Tablet PO 06/30/25 23:23 650 mg Q6HR PRN Administration Temp>100.4 or mild pain 1-3 Albuterol/Ipratropium 3 ml 05/30/25 16:04 Albuterol/Ipratropium (Duoneb) Rt Haley 3 Ml Nebu INH 06/29/25 16:03 Q6HRRT PRN SHORTNESS OF BREATH OR WHEEZE Amlodipine Besylate 2.5 mg 06/01/25 21:00 06/01/25 21:37 Amlodipine Besylate 2.5 Mg Tablet PO 07/01/25 20:59 2.5 mg HS KRISTEN Administration Aspirin 81 mg 05/31/25 09:00 06/01/25 08:18 Aspirin Ec 81 Mg Tabec PO 06/30/25 08:59 81 mg QDAY KRISTEN Administration Atorvastatin Calcium 40 mg 05/30/25 21:00 06/01/25 21:37 Atorvastatin Calcium 20 Mg Tablet PO 06/29/25 20:59 40 mg HS KRISTEN Administration Carvedilol 3.125 mg 06/01/25 17:30 06/01/25 16:33 Carvedilol 3.125 Mg Tablet PO 07/01/25 17:29 3.125 mg BIDWM KRISTEN Administration Clopidogrel Bisulfate 75 mg 05/30/25 16:15 06/01/25 08:18 Clopidogrel Bisulfate 75 Mg Tablet PO 06/29/25 16:14 75 mg QDAY KRISTEN Administration Duloxetine HCl 30 mg 05/31/25 09:00 06/01/25 08:18 Duloxetine Hcl 30 Mg Capsule PO 06/30/25 08:59 30 mg QDAY KRISTEN Administration Gabapentin 300 mg 05/31/25 09:00 06/01/25 08:18 Gabapentin 300 Mg Capsule PO 06/30/25 08:59 300 mg QDAY KRISTEN Administration Heparin Sodium (Porcine) 5,000 unit 05/30/25 14:00 06/02/25 05:27 Heparin Sod Inj 5000 Unit/Ml Vial SC 06/13/25 13:59 5,000 unit Q8HR KRISTEN Administration Potassium Phosphate 22.5 mmol/ 507.5 mls @ 82.778 mls/hr 06/02/25 08:00 Sodium Chloride IV 06/02/25 14:07 X1 ONE Magnesium Sulfate 4 gm in 50 mls @ 12.5 mls/hr 06/02/25 07:56 Magnesium Sulfate Ivpb IV 06/02/25 11:55 X1 ONE Losartan Potassium 100 mg 06/02/25 09:00 Losartan Potassium 25 Mg Tablet PO 07/02/25 08:59 QDAY KRISTEN Ondansetron HCl 4 mg 05/30/25 09:34 Ondansetron Inj 2 Mg/Ml Inj 2 Ml IVP 06/29/25 09:33 Q4HR PRN NAUSEA OR VOMITING Ranolazine 500 mg 06/01/25 12:15 06/01/25 21:37 Ranolazine 500 Mg Sabrina (Non Formulary) PO 07/01/25 12:14 500 mg BID KRISTEN Administration Plan Assessment and plan: Summary: Mr. Fisher is a 85-year-old male with past medical history of coronary artery disease status post PCI at least 10 stents from [id number], last PCI about [address] [facility] by Dr. Valentin, peripheral vascular disease status post femorofemoral bypass, distal abdominal aortic aneurysm status post [place] AAA endoprosthesis by Dr. Mazariegos in [place], hypertension, CVA with right hand weakness, hyperlipidemia, osteoarthritis, syncopal episode in the past and COPD/Asthma who presented to [facility] emergency department on May 30, 2025 with a chief complaint of right leg weakness and slurred speech. Stroke alert was initiated in the emergency department, teleneurology was consulted and patient had MRI which showed no acute lacunar infarct. In-house neurology following, patient on DAPT aspirin and Plavix due to recent PCI performed by cardiology is being continued. Cardiology consulted for management of chest pain. #Chronic stable angina #Cardiac chest pain #Elevated troponin #CAD s/p PCI with at least 10 stents from 2009- 2024, last cath on 12/04/2023 (12/04/2023 which showed moderate CAD with 50% in-stent restenosis of ostial and proximal LCx, 50% stenosis of ostial, proximal ramus. There is mild in-stent restenosis of 30 to 40% in the proximal to mid LAD stents, mild diffuse disease of the RCA with mild in-stent restenosis of the RPDA stent.) Patient has history of extensive CAD and PAD, patient has at least 10 stents placed from 2009?2024. Reports that underwent PCI with 2 stents placed as he had 80% blockage in unknown vessel at [facility] by Dr. Valentin. at bedside reports compliance with DAPT. Had a rapid response earlier today with chest pain complained of dull left-sided chest pain radiating to the back and left shoulder, 10/10 in intensity, continuous which improved with sublingual nitroglycerin. EKG reviewed, shows T wave inversion in V1, V2, right bundle branch block. Troponin elevated at 0.314. Review of patient's old troponin values show troponin in similar range likely due to underlying chronic myocardial stress. Patient has history of extensive CAD, unstable angina outpatient, on isosorbide mononitrate which was not resumed for the hospitalization. Echocardiogram 05/30/2025 shows 1. Left ventricle size is normal and systolic function is mildly reduced. Estimated ejection fraction is 45-50%. There is grade I diastolic dysfunction. 2. Right ventricle chamber size is normal and systolic function is normal. Estimated RVSP is 47 mmHg with RAP 3. 3. There is mild aortic valve sclerosis with no stenosis and no regurgitation. 4. There is mild mitral and tricuspid valve regurgitation. 5. Normal IVC with estimated RA pressure 3 mmHg. Cardiac catheterization 12/04/2023 summary/findings: 1. LHC showed moderate CAD with 50% in-stent restenosis of ostial and proximal LCx, 50% stenosis of ostial, proximal ramus. There is mild in-stent restenosis of 30 to 40% in the proximal to mid LAD stents, mild diffuse disease of the RCA with mild in-stent restenosis of the RPDA stent. 2. A total of 8 stents as per patient-all of them appear to be patent with mild to moderate in-stent restenosis-at least 3 in the LAD 3 in the LCx 1 in the ramus as well as 1 in the RPDA. 3. LVEF appears to be normal at 50 to 55% with normal LVEDP around 8 mmHg and no significant transvalvular gradient. Recommendations: ? Continue aspirin and Plavix ? Antianginal therapy with Coreg 6.25 mg p.o. twice daily, amlodipine 5 mg at bedtime; Increase dosage as blood pressure tolerates outpatient. ? Continue ranolazine 500 mg p.o. twice daily. ? Discontinue home isosorbide, will manage angina with Ranexa, beta-angelica and calcium channel angelica. ? Continue to monitor for chest pain ? Follow up outpatient in 1 week in clinic to assess response. #Chronic congestive heart failure with mildly reduced ejection fraction, EF 45-50% #Chronic systolic and diastolic heart failure Patient does have component of ischemic cardiomyopathy due to severe coronary artery disease. Mildly reduced ejection fraction noticed on echo. Currently asymptomatic, no lower extremity edema noted, no signs of fluid overload. Echocardiogram 05/30/2025 shows 1. Left ventricle size is normal and systolic function is mildly reduced. Estimated ejection fraction is 45-50%. There is grade I diastolic dysfunction. 2. Right ventricle chamber size is normal and systolic function is normal. Estimated RVSP is 47 mmHg with RAP 3. 3. There is mild aortic valve sclerosis with no stenosis and no regurgitation. 4. There is mild mitral and tricuspid valve regurgitation. 5. Normal IVC with estimated RA pressure 3 mmHg. Recommendations: - Continue losartan 50 mg, Coreg 6.25 mg, Jardiance 10 mg. - Strict intake and output, fluid restriction 1800 cc, daily weights, low-sodium cardiac diet. #Peripheral arterial disease status post femorofemoral bypass #Distal abdominal aortic aneurysm status post [place] AAA endoprosthesis Patient is established with vascular surgery outpatient, continue aspirin and Plavix. #Hypertension #Hypertensive urgency Blood pressure during episode of chest pain noted to be systolic in 190s, uncontrolled blood pressure. On home patient on losartan 50 mg daily, isosorbide mononitrate 30 mg, Coreg 3.125 twice daily - Currently on Coreg 6.25 mg p.o. twice daily, amlodipine 5 mg, Losartan 50mg daily #Hyperlipidemia Continue atorvastatin 40 mg at bedtime #CVA workup #CVA with right sided deficits by history #chronic pain Management as per primary team Thank you for the consult and allowing to participate in the care of the patient. Cardiology will continue to follow. Case discussed with Attending Physician Dr. Rl Sosa MD Internal Medicine PGY-2 Disclaimer: This note was dictated by speech recognition. Minor errors in butter wrapper may be present due to voice recognition software. Attending Provider Attestation/Addendum I have personally seen and examined the patient separately on the above date of service and discussed the plan of care with the resident. I reviewed the resident Dr. Colby Pratt / Mamadou Sosa consultation progress note and agree with the resident findings and plan in the note above and have also edited the documentation to reflect my findings and plan. Rl Herrera M.D. Interventional Cardiology
[2025-06-02] MEDS: LOSARTAN POTASSIUM 25 MG TABLET 100 MG PO (08:14)
[2025-06-02] MEDS: POTASSIUM PHOS 22.5 MMOL in SODIUM CHLORIDE 0.9% 500 ML 500 ML 82.778 MMOL IV (08:14)
[2025-06-02] MEDS: ASPIRIN EC 81 MG TABEC PO (08:14)
[2025-06-02] MEDS: CLOPIDOGREL BISULFATE 75 MG TABLET PO (08:14)
[2025-06-02] MEDS: DULoxetine HCL 30 MG CAPSULE PO (08:14)
[2025-06-02] MEDS: GABAPENTIN 300 MG CAPSULE PO (08:14)
[2025-06-02] MEDS: Magnesium Sulfate 4 GM Ivpb 4 GM/50 ML BAG IV (08:14)
[2025-06-02] MEDS: MAGNESIUM OXIDE 400 MG TABLET PO (08:14)
[2025-06-02] MEDS: RANOLAZINE 500 MG TABER (NON FORMULARY) PO (09:50)
--- NOTE | 2025-06-02 12:17 | PC.SS ---
Update: Neurology and cardiology recommendations are pending.
--- NOTE | 2025-06-02 12:58 | ESDS_ITS ---
<Statement entered by Aureliano Lam MD - 06/02/25 14:52> I saw and examined patient personally and supervised PGY 1 resident, Dr. Jaquez with formulating a discharge plan. I agree with the documentation with the exceptions as listed below. Patient presented with right leg weakness and dysphagia. MRI was negative for acute stroke and only showed chronic lacunar infarcts. After assessment by neurology patient was deemed to have had a TIA and recommended he continue treatment with DAPT. Patient also had episodes of chest pain while inpatient and was assessed by cardiology. Etiology of chest pain most likely due to his unstable angina and uncontrolled hypertension. Medication adjustments were done as listed below and recommended that he follow-up with Dr. Herrera as outpatient. All patient's labs done now returning to his baseline, patient is clinically stable and fit for discharge to home with home health. Plan of care discussed with Attending Dr. Horacio Lam MD PGY 2 Disclaimer: This note was dictated by speech recognition. Minor errors in outside energy sales representatives may be present due to voice recognition software. Planned Discharge Date 06/02/25 DS: Providers Provider Date of admission: 05/30/25 09:38 Primary care physician: Yosef Cardenas MD Admitting Provider: Kush Casper MD Attending Provider on Admission: Kush Casper MD Consults: 05/30/25 06:25 Consult to Neurology / Tele-Neurology Routine Comment: Consulting Provider: [facility] 05/30/25 09:37 Consult to Neurology / Tele-Neurology Routine Comment: Consulting Provider: Alexi Carter Referral Physical Therapy Routine Comment: Physician Instructions: 05/30/25 09:38 Referral Speech Therapy Routine Comment: 06/01/25 09:59 Consult to Cardiology Stat Comment: Consulting Provider: Rl Herrera Attending Provider on DC: Ton Leonard MD Discharging Provider: Ton Leonard MD DS: Diagnosis Problem List Completed Was Problem List Reviewed/Reconciled?: Yes Hospital Course Hospital Course Hospital course: Hospital Course: Patient is a 89-year-old male with history of CVA, CAD status post stent, chronic pain, essential hypertension, DM type II, who presented on 05/30/25 with a chief complaint of difficulty speaking and right leg weakness. MRI brain from 05/30 showed chronic multiple lacunar infarcts. On 06/01, at 9:33 AM, rapid response was called for patient due to new-onset chest pain radiating to L shoulder, slurred speech, and loss of strength in RLE. Troponin was elevated from admission, though patient has persistent troponin leak from 11/07. EKG showed no ST segment elevations, while CT head showed no acute hemorrhage, mass effect or midline shift. CTA head/neck showed no significant neck arterial stenoses or cerebral large vessel arterial occlusions or thrombus. CXR showed no pneumonia or pulmonary edema. Patient returned to baseline afterwards. On 06/02/25, patient was considered stable for discharge. Discharge Instructions: ? You have been started on ranolazine for your unstable angina. ? We have increased your home losartan dose to 100 mg once a day. ? We have started you on gabapentin for your nerve pain. ? We have started you on amlodipine 2.5 mg for your angina and blood pressure control. ? We have stopped your isosorbide dinitrate. ? We have stopped your ibuprofen due to risk of GI bleeding. ? Continue taking the rest of your home medications as before ? You will have to restrict your daily liquid intake to 1.5 Litres / 50 ounces per day. This includes water, teas, coffees and soups. ? You will have to follow a low salt diet for the rest of your life. This means no [place] food or fast food. ? You will have to take your weight daily. If your weight increases by more than 2?3 pounds in 1-2 days, take an extra water pill that day. ? You will have to measure your blood pressure daily. If the top number is less than 100, do not take your blood pressure medications that day. ? Keep a log of your blood pressures to take to your primary doctor and dealer analyst. - Follow up with your dealer analyst or dealer analyst, Dr. Herrera outpatient. His office number is [phone]. Please see a dealer analyst within 1-2 weeks of discharge - Follow up with your primary care physician within 1 week of discharge. If you do not have a primary care physician, please follow up with the [facility] Residents clinic ([phone]) ? If you experience any new, worsening or persistent symptoms either call your primary doctor, or dial 911 or present to the emergency department. Problem List: #Old CVA, posterior thalamus #Unstable angina #History of CVA #HfPEF #Essential hypertension #Type 2 diabetes mellitus #Chronic pain Status at Discharge Functional status at discharge: independent ambulation Overall status at discharge: patient is progressing back to baseline Time Spent with Patient Time attestation: Total time spent providing and/or coordinating discharge services: Time spent: Greater than 30 minutes Exam Vital Signs Temp Pulse Resp BP Pulse Ox O2 Del Method O2 Flow Rate 97.4 F 85 15 147/85 H 94 L Room Air 3 06/02/25 12:06/02/25 12:06/02/25 12:06/02/25 12:06/02/25 12:06/02/25 12:06/01/25 12:00 Narrative Exam General: Alert and oriented x3. In no acute distress. Eyes: Pupils are equal and reactive to light bilaterally. HEENT: Atraumatic, normocephalic. No JVD noted. Cardiovascular: Normal S1 and S2. Normal rate and regular rhythm. No murmurs appreciated. No peripheral pitting edema noted. No JVD noted. Respiratory: No respiratory distress. Lungs are clear to auscultation bilaterally. No wheezing or crackles heard. Abdomen: Soft, nontender, nondistended. Skin: No rash. Musculoskeletal: No gross injuries. Able to move all 4 extremities. Neuro: Alert and oriented x3. Sensation is intact throughout. Speech is back to normal. Strength is 5/5 in all extremities except RLE, which was 4/5. Psych: Normal affect and mood. Discharge Plan Plan Patient Disposition: Home w/HOME HEALTH Patient condition on transfer: Stable and Benefits outweigh risks Care Plan Goals: ? You have been started on ranolazine for your unstable angina. ? We have started you on gabapentin for your nerve pain. ? We have started you on amlodipine 2.5 mg for your angina and blood pressure control. ? We have stopped your isosorbide dinitrate. ? We have stopped your ibuprofen due to risk of GI bleeding. ? Continue taking the rest of your home medications as before ? You will have to restrict your daily liquid intake to 1.5 Litres / 50 ounces per day. This includes water, teas, coffees and soups. ? You will have to follow a low salt diet for the rest of your life. This means no [place] food or fast food. ? You will have to take your weight daily. If your weight increases by more than 2?3 pounds in 1-2 days, take an extra water pill that day. ? You will have to measure your blood pressure daily. If the top number is less than 100, do not take your blood pressure medications that day. ? Keep a log of your blood pressures to take to your primary doctor and dealer analyst. - Follow up with your dealer analyst or dealer analyst, Dr. Herrera outpatient. His office number is [phone]. Please see a dealer analyst within 1-2 weeks of discharge - Follow up with your primary care physician within 1 week of discharge. If you do not have a primary care physician, please follow up with the [facility] Residents clinic ([phone]) ? If you experience any new, worsening or persistent symptoms either call your primary doctor, or dial 911 or present to the emergency department. Prescriptions/Referrals Prescriptions/Med Rec: New gabapentin 300 mg Capsule 300 mg PO QDAY 30 Days Qty: 30 2RF ranolazine 500 mg Tablet Extended Release 12 Hr 500 mg PO BID 30 Days Qty: 60 1RF amlodipine 5 mg tablet 5 mg PO HS 30 Days Qty: 30 1RF carvedilol 6.25 mg tablet 6.25 mg PO BIDWM 30 Days Qty: 60 2RF losartan 50 mg tablet 50 mg PO QDAY 30 Days Qty: 30 1RF Continued aspirin 81 mg tablet,delayed release (DR/EC) 81 mg PO DAILY Patient Comments: TAKE ONE TABLET BY MOUTH EVERY DAY FOR THE HEART Jardiance 10 mg Tablet 10 mg PO QAM 30 Days Qty: 30 0RF duloxetine [Cymbalta] 30 mg capsule,delayed release(DR/EC) 30 mg PO BID Patient Comments: TAKE 1 CAPSULE BY MOUTH ONCE A DAY FOR 1 WEEK THEN 2 TIMES A DAY WITH FOOD rosuvastatin 40 mg tablet 40 mg PO HS Patient Comments: TAKE 1 TABLET BY MOUTH EVERY EVENING FOR HIGH CHOLESTEROL Trelegy Ellipta 100-62.5-25 mcg blister with device 1 inh INHALATION Q24H Patient Comments: INHALE 1 PUFF BY MOUTH EVERY DAY clopidogrel 75 mg tablet 75 mg PO DAILY Patient Comments: TAKE 1 TABLET (75 MG) BY ORAL ROUTE ONCE DAILY FOR STROKE PREVENTION Discontinued losartan 100 mg tablet 100 mg PO QDAY losartan 50 mg tablet 50 mg PO DAILY Patient Comments: TAKE 1 TABLET BY MOUTH EVERY DAY isosorbide mononitrate 30 mg tablet extended release 24 hr 30 mg PO DAILY Patient Comments: TAKE 1 TABLET (30 MG) BY ORAL ROUTE ONCE DAILY IN THE MORNING FOR ATHEROSCLEROTIC HEART DISEASE ibuprofen 800 mg tablet 800 mg PO Q12H PRN (Reason: pain) Patient Comments: TAKE 1 TABLET (800 MG) BY ORAL ROUTE EVERY 12 HOURS NEEDED FOR PAIN WITH FOOD carvedilol 3.125 mg tablet 3.125 mg PO Q12H Patient Comments: TAKE 1 TABLET (3.125 MG) BY ORAL ROUTE 2 TIMES PER DAY WITH FOOD FOR HIGH BLOOD PRESSURE AND CAD Referrals: Yosef Cardenas MD [Primary Care Provider, Family Practice] Patient/Caregiver Discharge Instructions Education Materials: Unstable Angina, What Is Angina?, CAD, Discharge Instructions for Stroke Print Language: Welsh Stand Alone Forms: [employer] Award Info., Patient Portal Info Letter Discharge Order Discharge Orders: Discharge (Routine); Ordered 06/02/25 Ordered By: Aureliano Lam Quality Discharge Quality Measures VTE therapy Attestestation Attestation I discussed with and supervised the resident physician who took care of this patient. I agree with the assessment and discharge plan as above. Home health referral ordered. Follow-up with PCP and dealer analyst as scheduled. Return to the emergency room for recurrent symptoms
--- NOTE | 2025-06-02 14:31 | PC.SS ---
METER/RELAY CRAFTSMAN met with patient at bedside to confirm d/c plan. Patient stated that plan is to return home. Home health (Nursing, PT) to be ordered. No preferred agency identified. Bedside nurse to inform residential team of discharge plan.
--- NOTE | 2025-06-04 10:58 | PC.CC ---
[facility] accepted for HH. SOC 06/05/25.
== END 2025-06-02 14:42 | disposition home health service (06) | DRG 65 ==
LOC: SERX 07:43 → SERHOLD 10:06 → S2SX 13:06
PROVIDERS: Admitting Provider Student in an Organized Health Care Education/Training Program; Emergency Provider Family Medicine; PCP Family Medicine; Visit Provider Student in an Organized Health Care Education/Training Program
DX: I63.89 Other cerebral infarction (principal); G81.91 Hemiplegia, unspecified affecting right dominant side; I25.110 Atherosclerotic heart disease of native coronary artery with unstable angina pectoris; I50.42 Chronic combined systolic (congestive) and diastolic (congestive) heart failure; E11.51 Type 2 diabetes mellitus with diabetic peripheral angiopathy without gangrene; E78.5 Hyperlipidemia, unspecified; I73.9 Peripheral vascular disease, unspecified; Z98.61 Coronary angioplasty status; G89.29 Other chronic pain; I11.0 Hypertensive heart disease with heart failure; R47.01 Aphasia; J44.89 Other specified chronic obstructive pulmonary disease; R13.10 Dysphagia, unspecified; Z79.02 Long term (current) use of antithrombotics/antiplatelets; Z79.82 Long term (current) use of aspirin; Z79.84 Long term (current) use of oral hypoglycemic drugs; Z79.899 Other long term (current) drug therapy; Z87.891 Personal history of nicotine dependence
CPT/HCPCS: 36415; 70450; 70496; 70498; 70544; 71045; 74018; 80048; 80053; 80061; 80307; 80320; 81001; 83036; 83735; 83880; 84100; 84484; 85025; 85610; 85730; 87077; 87086; 87186; 92526; 92610; 93005; 93306; 96361; 96374; 96375; 97163; 99291; 99292; A4649; J0360; J1644; J1920; J2270; J2405; J3475; J7030; J7999; Q9967; A9270; G0480